=== PATIENT | female | born 1965 | race African-American/Black ===

== ENCOUNTER 2016-08-18 05:36 | Inpatient (IN) | payer BC ==
[~2016-08-18] VITALS: Ht 165.1 cm; Wt 119.4 kg
[~2016-08-18 05:36] MED LIST: ALBU0.63 NEB; ALBU8.5H6 INH; AMLO5TAB2 PO; CETI10CA PO; DOCU-27 PO; ENOX120D SQ; FLUT9.9S NS; HYDR-2666 PO; HYDR12.53 PO; LISI-338 PO; LISI40TA PO; NAPR500T PO; NAPR500T3 PO; OXYC-323 PO; WARF5TAB PO
[2016-08-18] MEDS ORDERED: ASPIRIN 325 MG TABLET PO ONE (06:00)
[2016-08-18 06:01] LABS: BASO % 1 % (0-3); EOS % 4 % (0-3); HEMOGLOBIN 12.4 g/dL (12.0-15.5); LYMPH # 1.2 x10^3/uL (1.0-4.8); LYMPH % 36 % (24-48); MEAN CORPUSCULAR HEMOGLOBIN 28 pg (25-35); MEAN CORPUSCULAR HGB CONC 33 g/dL (31-37); MEAN CORPUSCULAR VOLUME 85 fL (79-100); MONO % 8 % (0-9); NEUT % 51 % (31-73); PLATELET COUNT 247 x10^3/uL (140-400); RED BLOOD COUNT 4.35 x10^6/uL (3.50-5.40); RED CELL DISTRIBUTION WIDTH 15.1 % (11.5-14.5); WHITE BLOOD COUNT 3.3 x10^3/uL (4.0-11.0)
[2016-08-18 06:13] LABS: CALCIUM 9.6 mg/dL (8.5-10.1); CREATININE 0.8 mg/dL (0.6-1.0); GFR 90.8; INR 3.1 (0.8-1.1); POTASSIUM 4.2 mmol/L (3.5-5.1); PROTHROMBIN TIME PATIENT 30.6 SEC (11.7-14.0)
[2016-08-18 06:19] LABS: ALBUMIN 3.7 g/dL (3.4-5.0); ALBUMIN/GLOBULIN RATIO 0.8 (1.0-1.7); TOTAL BILIRUBIN 0.3 mg/dL (0.2-1.0); TOTAL PROTEIN 8.4 g/dL (6.4-8.2)
--- NOTE | 2016-08-18 06:30 | PHYS DOC ---
Past Medical History Past Medical History: Asthma, Hypertension Past Surgical History: , Other Additional Past Surgical Histo: Left arthroscope-2 torn meniscus L)knee Alcohol Use: None Drug Use: None Adult General Chief Complaint Chief Complaint: CHEST PAIN HPI HPI Patient is a 51 year old female who presents with complaint of chest pain. Patient states that her pain started yesterday evening at approximately 2100. Patient states that she is having substernal heaviness which she rates as 6 out of 10. Patient denies radiation of pain. Patient has had associated shortness of breath and nausea. Patient also notes that she had a low-grade fever of 99.8 F measured last night. Patient states that she took albuterol last night with no improvement in symptoms. Patient states that she has history of pulmonary embolism is concerned that she may have a recurrence as her symptoms are the same as they were one year ago when she was originally diagnosed. Patient is currently on Coumadin therapy and states that she has been compliant with the medication. Patient follows with Dr. Meza for primary care and Dr. Puckett of cardiology. Review of Systems Review of Systems Constitutional: Fever [] Eyes: Denies change in visual acuity, redness, or eye pain [] HENT: Denies nasal congestion or sore throat [] Respiratory: Shortness of breath [] Cardiovascular: Chest pain, denies edema [] GI: Nausea, denies abdominal pain, vomiting, bloody stools or diarrhea [] : Denies dysuria or hematuria [] Musculoskeletal: Denies back pain or joint pain [] Integument: Denies rash or skin lesions [] Neurologic: Denies headache, focal weakness or sensory changes [] Current Medications Current Medications Current Medications Medications (Trade) Dose Ordered Sig/Isai Start Time Stop Time Status Last Admin Dose Admin Aspirin (Aniya Aspirin) 325 mg 1X ONCE 08/18/16 06:00 08/18/16 06:01 DC 08/18/16 05:57 325 MG Fentanyl Citrate (Fentanyl 2ml Vial) 50 mcg PRN Q15MIN PRN 08/18/16 06:45 08/19/16 06:44 08/18/16 09:16 50 MCG Info (Do NOT chart on this entry -- for MONITORING) 1 each PRN DAILY PRN 08/18/16 06:45 08/20/16 06:44 Iohexol (Omnipaque 300 Mg/ml) 75 ml 1X ONCE 08/18/16 07:00 08/18/16 07:01 DC 08/18/16 07:31 75 ML Ondansetron HCl (Zofran) 4 mg 1X ONCE 08/18/16 07:00 08/18/16 07:01 DC 08/18/16 06:43 4 MG Allergies Allergies Allergies Coded Allergies Type Severity Reaction Last Updated Verified diphenhydramine Allergy Intermediate 09/18/15 Yes penicillin Allergy Intermediate Pt states, "My twin sister is allergic to it. "09/18/15 Yes promethazine Allergy Intermediate 08/18/16 Yes Physical Exam Physical Exam Constitutional: Alert, afebrile, no acute distress. [] HENT: Normocephalic, atraumatic, bilateral external ears normal, oropharynx moist, no oral exudates, nose normal. [] Eyes: PERRLA, EOMI, conjunctiva normal, no discharge. [] Neck: Normal range of motion, no tenderness, supple, no stridor. [] Cardiovascular:Heart rate regular rhythm, no murmur [] Lungs & Thorax: Bilateral breath sounds clear to auscultation [] Abdomen: Bowel sounds normal, soft, no tenderness, no masses, no pulsatile masses. [] Skin: Warm, dry, no erythema, no rash. [] Back: No tenderness, no CVA tenderness. [] Extremities: Right lower leg ecchymosis, nontender to palpation, no cyanosis, no clubbing, ROM intact, no edema. [] Neurologic: Alert and oriented X 3, normal motor function, normal sensory function, no focal deficits noted. [] Current Patient Data Vital Signs Vital Signs Date Time Temp Pulse Resp B/P Pulse Ox O2 Delivery O2 Flow Rate FiO2 08/18/16 07:53 58 149/85 96 Room Air 08/18/16 06:48 15 08/18/16 05:54 98.3 98.3 Lab Values Laboratory Tests Test 08/18/16 05:50 White Blood Count 3.3x10^3/uL (4.0-11.0) L Red Blood Count 4.35x10^6/uL (3.50-5.40) Hemoglobin 12.4g/dL (12.0-15.5) Hematocrit 37.0% (36.0-47.0) Mean Corpuscular Volume 85fL (79-100) Mean Corpuscular Hemoglobin 28pg (25-35) Mean Corpuscular Hemoglobin Concent 33g/dL (31-37) Red Cell Distribution Width 15.1% (11.5-14.5) H Platelet Count 247x10^3/uL (140-400) Neutrophils (%) (Auto) 51% (31-73) Lymphocytes (%) (Auto) 36% (24-48) Monocytes (%) (Auto) 8% (0-9) Eosinophils (%) (Auto) 4% (0-3) H Basophils (%) (Auto) 1% (0-3) Neutrophils # (Auto) 1.7x10^3uL (1.8-7.7) L Lymphocytes # (Auto) 1.2x10^3/uL (1.0-4.8) Monocytes # (Auto) 0.3x10^3/uL (0.0-1.1) Eosinophils # (Auto) 0.1x10^3/uL (0.0-0.7) Basophils # (Auto) 0.0x10^3/uL (0.0-0.2) Prothrombin Time 30.6SEC (11.7-14.0) H Prothrombin Time INR 3.1 (0.8-1.1) H PTT 43SEC (24-38) H Sodium Level 143mmol/L (136-145) Potassium Level 4.2mmol/L (3.5-5.1) Chloride Level 106mmol/L (98-107) Carbon Dioxide Level 29mmol/L (21-32) Anion Gap 8 (6-14) Blood Urea Nitrogen 18mg/dL (7-20) Creatinine 0.8mg/dL (0.6-1.0) Estimated GFR (Cockcroft-Gault) 90.8 BUN/Creatinine Ratio 23 (6-20) H Glucose Level 103mg/dL (70-99) H Calcium Level 9.6mg/dL (8.5-10.1) Total Bilirubin 0.3mg/dL (0.2-1.0) Aspartate Amino Transferase (AST) 24U/L (15-37) Alanine Aminotransferase (ALT) 21U/L (14-59) Alkaline Phosphatase 70U/L (46-116) Troponin I Quantitative < 0.017ng/mL (0.000-0.055) MA-Ipw-V-Type Natriuretic Peptide 58pg/mL (0-124) Total Protein 8.4g/dL (6.4-8.2) H Albumin 3.7g/dL (3.4-5.0) Albumin/Globulin Ratio 0.8 (1.0-1.7) L Laboratory Tests 08/18/16 05:50 Laboratory Tests 08/18/16 05:50 EKG EKG Interpreted by me: Heart rate 69, sinus rhythm, left axis deviation, no acute ST /T-wave abnormalities present [] Radiology/Procedures Radiology/Procedures [place] [id number] IMAGING REPORT Signed PATIENT: LAZARO RUELAS ACCOUNT: [id number] : 1965 LOCATION: ER AGE: 51 SEX: F EXAM STATUS: REG ER ORD. PHYSICIAN: NINFA SPRING MD REASON: CHEST PAIN PROCEDURE: CHEST AP ONLY Portable chest, 08/18/2016: History: Chest pain The heart size and pulmonary vascularity are normal. The lungs are clear. There is no evidence of pleural fluid. IMPRESSION: No acute cardiopulmonary abnormality is detected. DICTATED and SIGNED BY: PACHECO WADE MD DATE: 08/18/16 07 CC: GARDENIA SINGH MD; NINFA SPRING MD; KEANU MEZA MD ~ [address] [id number] IMAGING REPORT Signed PATIENT: LAZARO RUELAS ACCOUNT: [id number] : 1965 LOCATION: ER AGE: 51 SEX: F EXAM STATUS: REG ER ORD. PHYSICIAN: GARDENIA SINGH MD REASON: chest pain, shortness of breath, history of PE PROCEDURE: CT ANGIOGRAPHY CHEST CTA of the chest with contrast, 08/18/2016: History: Chest pain, shortness of breath Multidetector CT imaging was performed following an IV bolus injection of iodinated contrast material. Multiplanar reconstructions were produced including coronal MIP images. The central pulmonary arteries are well opacified and no filling defects are seen to suggest pulmonary emboli. The thoracic aorta is unremarkable. No mediastinal or hilar adenopathy is seen. There are several scattered linear opacities in the lungs compatible with atelectasis and/or scarring. There are small subpleural parenchymal opacities posteriorly in the right lower chest which were not evident on the previous study. These may represent scars in this patient with a history of previous pulmonary emboli. No significant parenchymal consolidation is seen. There is no evidence of pleural fluid. There are mild scattered spurs in the spine. IMPRESSION: 1. No CT evidence of central pulmonary emboli. 2. Mild linear atelectasis in both lungs. 3. Minimal subpleural peripheral parenchymal opacities in the right lower lobe may represent scars or old pulmonary infarcts. PQRS Compliance Statement: One or more of the following individualized dose reduction techniques were utilized for this examination: 1. Automated exposure control 2. Adjustment of the mA and/or kV according to patient size 3. Use of iterative reconstruction technique DICTATED and SIGNED BY: PACHECO WADE MD DATE: 08/18/16 0759 CC: GARDENIA SINGH MD; KEANU MEZA MD ~ [] Course & Med Decision Making Course & Med Decision Making Pertinent Labs and Imaging studies reviewed. (See chart for details) Patient was given aspirin, IV fentanyl and Zofran in the emergency department. Due to history of pulmonary embolism the patient had a CT angiogram that was negative for pulmonary embolus. Patient continues to have substernal chest pain which has improved slightly with treatment. The patient will need be admitted the hospital for rule out of myocardial infarction. I spoke with Dr. Meza who accepted care patient in hospital. A consult was placed to Dr. Puckett of cardiology to follow with patient in hospital. Dragon Disclaimer Dragon Disclaimer This electronic medical record was generated, in whole or in part, using a voice recognition dictation system. Departure Departure Impression: Primary Impression: Chest pain Additional Impressions: Hypertension History of pulmonary embolism Disposition: ADMITTED INPATIENT Admitting Physician: Keanu Meza Condition: STABLE Referrals: KEANU MEZA MD (PCP) Problem Qualifiers Primary Impression: Chest pain Chest pain type: unspecified Qualified Code: R07.9 - Chest pain, unspecified Additional Impressions: Hypertension Hypertension type: essential hypertension Qualified Code: I10 - Essential ( primary) hypertension GARDENIA SINGH MD Aug 18, 2016 06:30
[2016-08-18] MEDS: FENTANYL PF 100 MCG/2 ML VIAL. IV PRN ×3 (06:44→17:27)
[2016-08-18] MEDS ORDERED: CONTRAST GIVEN MC PRN (06:45)
--- NOTE | 2016-08-18 06:53 | EKG ---
[facility] [address] [place] [address] Test Date: 2016-08-18 Test Time: 05:45:26 Pat Name: LAZARO RUELAS Department: Room: Gender: F Supervisor [employer]: : 1965 Requested By: NINFA SPRING Order Number: [id number] Reading MD: Mendoza Cortés Measurements Intervals [place] Rate: 69 P: 8 MD: 186 QRS: -46 QRSD: 102 T: 39 QT: 392 QTc: 422 Interpretive Statements SINUS RHYTHM Electronically Signed On 08-18-2016 9:40:20 CDT by Mendoza Cortés
[2016-08-18] MEDS ORDERED: ONDANSETRON PF 4 MG/2 ML VIAL. IV ONE (07:00)
[2016-08-18] MEDS ORDERED: IOHEXOL 300 MG/ML 75 ML VIAL IV ONE (07:00)
--- NOTE | 2016-08-18 07:10 | RAD ---
Portable chest, 08/18/2016: History: Chest pain The heart size and pulmonary vascularity are normal. The lungs are clear. There is no evidence of pleural fluid. IMPRESSION: No acute cardiopulmonary abnormality is detected.
[2016-08-18] MEDS ORDERED: FENTANYL PF 100 MCG/2 ML VIAL. IV PRN (08:15)
[2016-08-18] MEDS ORDERED: ACETAMINOPHEN 325 MG TABLET. PO PRN (08:15)
[2016-08-18] MEDS ORDERED: ONDANSETRON PF 4 MG/2 ML VIAL. IV PRN (08:15)
--- NOTE | 2016-08-18 08:15 | RAD ---
CTA of the chest with contrast, 08/18/2016: History: Chest pain, shortness of breath Multidetector CT imaging was performed following an IV bolus injection of iodinated contrast material. Multiplanar reconstructions were produced including coronal MIP images. The central pulmonary arteries are well opacified and no filling defects are seen to suggest pulmonary emboli. The thoracic aorta is unremarkable. No mediastinal or hilar adenopathy is seen. There are several scattered linear opacities in the lungs compatible with atelectasis and/or scarring. There are small subpleural parenchymal opacities posteriorly in the right lower chest which were not evident on the previous study. These may represent scars in this patient with a history of previous pulmonary emboli. No significant parenchymal consolidation is seen. There is no evidence of pleural fluid. There are mild scattered spurs in the spine. IMPRESSION: 1. No CT evidence of central pulmonary emboli. 2. Mild linear atelectasis in both lungs. 3. Minimal subpleural peripheral parenchymal opacities in the right lower lobe may represent scars or old pulmonary infarcts. PQRS Compliance Statement: One or more of the following individualized dose reduction techniques were utilized for this examination: 1. Automated exposure control 2. Adjustment of the mA and/or kV according to patient size 3. Use of iterative reconstruction technique
[2016-08-18] MEDS ORDERED: IV NORMAL SALINE 1000ML BAG 1,000 ML IV SCH (09:00)
--- NOTE | 2016-08-18 09:47 | PDOC2 ---
BRUNO CHRISTIANSEN CHANGE ROOM ATTENDANT 08/18/16 0947: CARDIAC CONSULT DATE OF CONSULT Date of Consult DATE: 08/18/16 TIME: 09:41 REASON FOR CONSULT Reason for Consult: Chest Pain REFERRING PHYSICIAN Referring Physician: Dr. Steven SOURCE Source: Chart review, Patient HISTORY OF PRESENT ILLNESS HISTORY OF PRESENT ILLNESS This is a 51 yo female, with a h/o PE and hypertension, who presented with complaints of chest pain. Patient reports pain began yesterday evening after waking up from a nap. Located in her central chest. Describes as pressure. Associated with dizziness, slight nausea, SOA, and chills (temp 99.4). Denies any palpitations, diaphoresis, or syncope. Influenza A mid-july. Feels like she has recovered from this. Pain has essentially been constant since beginning late yesterday, although it is slightly less now. Worsened with deep breathing. Slightly better with fentanyl in ED. Reports pain very similar to what she experienced with PE last year. Is on warfarin therapy and has been compliant with medications. PAST MEDICAL HISTORY Cardiovascular: HTN, [place] (secondary to PE) Pulmonary: Asthma, Other (PE) GI: No pertinent hx Heme/Onc: Anemia NOS Hepatobiliary: No pertinent hx Psych: No pertinent hx Musculoskeletal: Osteoarthritis Rheumatologic: No pertinent hx Infectious disease: No pertinent hx ENT: No pertinent hx Renal/: No pertinent hx Endocrine: No pertinent hx, Other (obesity ) Dermatology: No pertinent hx PAST SURGICAL HISTORY Past Surgical History: , Hysterectomy (recent ), Other FAMILY HISTORY Family History: Hypertension, Stroke SOCIAL HISTORY Smoke: No ALCOHOL: none Drugs: None Lives: with Family CURRENT MEDICATIONS CURRENT MEDICATIONS Current Medications Medications (Trade) Dose Ordered Sig/Isai Route PRN Reason Start Time Stop Time Status Last Admin Dose Admin Aspirin (Aniya Aspirin) 325 mg 1X ONCE PO 08/18/16 06:00 08/18/16 06:01 DC 08/18/16 05:57 Ondansetron HCl (Zofran) 4 mg 1X ONCE IV 08/18/16 07:00 08/18/16 07:01 DC 08/18/16 06:43 Fentanyl Citrate (Fentanyl 2ml Vial) 50 mcg PRN Q15MIN PRN IV PAIN GREATER THAN 3/10 08/18/16 06:45 08/19/16 06:44 08/18/16 09:16 Iohexol 75 ml 75 ml 1X ONCE IV 08/18/16 07:00 08/18/16 07:01 DC 08/18/16 07:31 Sodium Chloride (Iv Sodium Chloride 0.9% 1000ml Bag) 1,000 ml @ 100 mls/hr Q10H IV 08/18/16 09:00 08/19/16 08:59 08/18/16 09:16 ALLERGIES ALLERGIES: Coded Allergies: diphenhydramine (Verified Allergy, Intermediate, 09/18/15) penicillin (Verified Allergy, Intermediate, Pt states, "My twin sister is allergic to it.", 09/18/15) promethazine (Verified Allergy, Intermediate, 08/18/16) ROS Review of System 14 point ROS conducted with pertinent positives noted above in HPI. PHYSICAL EXAM General: Alert, Oriented X3, Cooperative, No acute distress HEENT: Atraumatic, Mucous membr. moist/pink Lungs: Clear to auscultation, Normal air movement Heart: Regular rate, Normal S1, Normal S2, Other (central chest tenderness upon palpation ) Abdomen: Soft Extremities: No edema, Normal pulses Skin: No significant lesion Neuro: Normal speech, Sensation intact Psych/Mental Status: Mental status NL, Mood NL MUSCULOSKELETAL: Osteoarthritic changes both hands VITALS VITALS Vital Signs Date Time Temp Pulse Resp B/P Pulse Ox O2 Delivery O2 Flow Rate FiO2 08/18/16 09:16 18 08/18/16 09:03 60 161/85 100 08/18/16 07:53 Room Air 08/18/16 05:54 98.3 98.3 LABS Lab: Laboratory Tests Test 08/18/16 05:50 White Blood Count 3.3x10^3/uL (4.0-11.0) Red Blood Count 4.35x10^6/uL (3.50-5.40) Hemoglobin 12.4g/dL (12.0-15.5) Hematocrit 37.0% (36.0-47.0) Mean Corpuscular Volume 85fL (79-100) Mean Corpuscular Hemoglobin 28pg (25-35) Mean Corpuscular Hemoglobin Concent 33g/dL (31-37) Red Cell Distribution Width 15.1% (11.5-14.5) Platelet Count 247x10^3/uL (140-400) Neutrophils (%) (Auto) 51% (31-73) Lymphocytes (%) (Auto) 36% (24-48) Monocytes (%) (Auto) 8% (0-9) Eosinophils (%) (Auto) 4% (0-3) Basophils (%) (Auto) 1% (0-3) Neutrophils # (Auto) 1.7x10^3uL (1.8-7.7) Lymphocytes # (Auto) 1.2x10^3/uL (1.0-4.8) Monocytes # (Auto) 0.3x10^3/uL (0.0-1.1) Eosinophils # (Auto) 0.1x10^3/uL (0.0-0.7) Basophils # (Auto) 0.0x10^3/uL (0.0-0.2) Prothrombin Time 30.6SEC (11.7-14.0) Prothromb Time International Ratio 3.1 (0.8-1.1) Activated Partial Thromboplast Time 43SEC (24-38) Sodium Level 143mmol/L (136-145) Potassium Level 4.2mmol/L (3.5-5.1) Chloride Level 106mmol/L (98-107) Carbon Dioxide Level 29mmol/L (21-32) Anion Gap 8 (6-14) Blood Urea Nitrogen 18mg/dL (7-20) Creatinine 0.8mg/dL (0.6-1.0) Estimated GFR (Cockcroft-Gault) 90.8 BUN/Creatinine Ratio 23 (6-20) Glucose Level 103mg/dL (70-99) Calcium Level 9.6mg/dL (8.5-10.1) Total Bilirubin 0.3mg/dL (0.2-1.0) Aspartate Amino Transf (AST/SGOT) 24U/L (15-37) Alanine Aminotransferase (ALT/SGPT) 21U/L (14-59) Alkaline Phosphatase 70U/L (46-116) Troponin I Quantitative < 0.017ng/mL (0.000-0.055) FR-Fpp-T-Type Natriuretic Peptide 58pg/mL (0-124) Total Protein 8.4g/dL (6.4-8.2) Albumin 3.7g/dL (3.4-5.0) Albumin/Globulin Ratio 0.8 (1.0-1.7) ECHOCARDIOGRAM ECHOCARDIOGRAM <Conclusion> The left ventricular systolic function is normal. The ejection fraction is estimated at 55-60%. There is normal LV segmental wall motion. Trace to mild mitral regurgitation. Mild tricuspid regurgitation. There is no evidence of significant pericardial effusion. DATE: 05/27/15 1622 HEART CATH HEART CATH Conclusion 1. No significant coronary artery disease 2. Normal left ventricle systolic function with ejection fraction estimated at 60% 3. No significant mitral regurgitation or aortic stenosis Recommendations Patient's non-STEMI is most probably from the right ventricular strain secondary to pulmonary embolism. Recommended medical management. DATE: 05/27/15 0855 ASSESSMENT/PLAN ASSESSMENT/PLAN 1. Chest Pain, atypical initial trop negative- continue with series Cath 06/01 without any significant CAD pain possible pleuritic in nature as it is affected by deep breathing or MSK in origin as it is worsened with applying pressure to central chest. will check echo 2. H/o PE on warfarin therapy INR 3.1 CTA neg for PE 3. Hypertension resume home antiHTN therapy 4. Hyperlipidemia LDL 145 recommend statin therapy Problems: NEELAM PATEL MD 08/18/16 1430: CARDIAC CONSULT ALLERGIES ALLERGIES: Coded Allergies: diphenhydramine (Verified Allergy, Intermediate, 09/18/15) penicillin (Verified Allergy, Intermediate, Pt states, "My twin sister is allergic to it.", 09/18/15) promethazine (Verified Allergy, Intermediate, 08/18/16) ASSESSMENT/PLAN ASSESSMENT/PLAN Patient seen and examined. Agree with IT PROGRAMMER's assessment and plan. Chest pain with atypical features, reproducible to palpation and most probably musculoskeletal. Myocardial infarction ruled out. Cardiac catheterization in 2016 did not show any significant coronary disease. Check 2-D echo to assess LV systolic function and rule out wall motion abnormalities. Agree with initiating statin therapy for hyperlipidemia. Thank you for your consultation. Problems: BRUNO CHRISTIANSEN APRN Aug 18, 2016 09:47 NEELAM PATEL MD Aug 18, 2016 14:30
--- NOTE | 2016-08-18 09:58 | ACF ---
Admission Forms Criteria CARDIOLOGY GRG Clinical Indications for Admission to Inpatient Care ( Place 'X' for any and all applicable criteria): Hospital admission is needed for appropriate care of the patient because of ANY ONE of the following (1): [ ] I. Hemodynamic instability as indicated by ALL of the following (1)(2)(3) (4)(5) [ ]a) Vital signs or other findings not as expected for chronic patient condition or baseline [ ]b) Instability indicated by ANY ONE of the following: [ ]i) Hypotension [ ]ii) Symptomatic Tachycardia unresponsive to treatment ( e.g., analgesia, fluids, sedation as indicated) [ ]iii) Inadequate perfusion indicated by ANY ONE of the following: [ ] 1) Lactic acidosis (> 2 mmol/L) [ ] 2) New abnormal capillary refill (> 3 seconds) [ ] 3) Reduced urine output [ ] 4) New altered mental status [ ]iv) Orthostatic vital sign changes unresponsive to treatment (e.g., fluids) [ ]v) IV inotropic or vasopressor medication required to maintain adequate blood pressure or perfusion [ ] II. Severe heart failure as indicated by ANY ONE of the following(17)(18) [ ]a) Respiratory distress [ ]b) Hypotension [ ]c) Anasarca (refractory to outpatient therapy) [ ]d) Cardiac arrhythmias of immediate concern [ ]e) Myocardial ischemia [ ] III. Cardiac arrhythmias or findings of immediate concern indicated by ANY ONE of the following (19)(20): [ ] a) Heart rhythms that are inherently dangerous or unstable indicated by ANY ONE of the following (21)(22)(23): [ ] i) Resuscitated ventricular fibrillation or cardiac arrest [ ] ii) Ventricular escape rhythm [ ] iii) Sustained ventricular tachycardia (30 seconds or more of ventricular rhythm at greater than 100 beats per minute) [ ] iv) Nonsustained ventricular tachycardia and ANY ONE of the following: [ ] 1) Suspected cardiac ischemia as cause or consequence of ventricular tachycardia [ ] 2) In setting of acute myocarditis [ ] b) Unstable cardiac conduction defects indicated by ANY ONE of the following(23)(24)(25) [ ] i) Type II second-degree atrioventricular block [ ]ii) Third-degree atrioventricular block [ ]iii) New-onset left bundle branch block with suspected myocardial ischemia [ ]c) Any heart rhythm and ANY ONE of the following (21)(22)(26)(27) (28) [ ] i) Continuous long-term ECG monitoring needed (e.g., initiation of drug requiring monitoring for more than 24 hours) [ ] ii) Patient has automatic implanted cardioverter defibrillator that is repeatedly firing, malfunctioning, or in need of immediate adjustment of settings beyond the scope of ambulatory or observation care [ ]d) Heart rhythms of concern due to ANY ONE of the following: [ ] i) Hypotension [ ] ii) Respiratory distress [ ] iii) Association with other significant symptoms (e.g., bradycardia with syncope or ongoing dizziness, supraventricular tachycardia with chest pain (14)(15)(17) [ ] IV. Monitoring for cardiac contusion beyond the scope of observation care needed [A](30)(31)(32) [ ] V. Surgical or device complication (e.g., valve replacement complication , pacemaker dysfunction) (35)(41)(44)(45)(46) [ ] . Inpatient palliative care needed. [B](49) Also use Inpatient Palliative Care Criteria [ ] VII. Nonbacterial thrombotic (marantic) endocarditis (36)(43)(47)(48) [X] VIII. Cardiology condition, symptom, or finding for which emergency and observation care has failed or are not considered appropriate. [ ] IX. Acute valvular disease requiring inpatient as indicated by ANY ONE of the following (41) [ ]a) Acute valvular regurgitation (42) [ ]b) Noninfectious valvulitis (43) [ ]c) Obstructive valve thrombosis [ ]d) Paravalvular leak [ ]e) Other significant valvular disorder remaining after emergency or observation level of care (as appropriate) [ ]X. Pericardial disease requiring inpatient treatment as indicated by ANY ONE of the following (33)(34)(35)(36)(37) [ ]a) Suspected tamponade (38)(39)(40) [ ]b) Hemopericardium [ ]c) Other significant pericardial disorder remaining after emergency or observation level of care (as appropriate) [ ] XI. Cardiac ischemia beyond scope of emergency and observation care. [ ] XII. Hypertension requiring inpatient treatment as indicated by ANY ONE of the following (6)(7)(8) [ ]a) SBP greater than 220 mm Hg or DBP greater than 120 mmHg despite treatment [ ]b) SBP greater than 140 mm Hg or DBP greater than 100 mm Hg with evidence of acute end organ damage as indicated by ANY ONE of the following [ ] i) Encephalopathy [ ] ii) Acute renal failure as indicated by new onset of ANY ONE of the following (9)(10)(11)(12)(13) [ ]1) 3-fold rise in serum creatinine from baseline [ ]2) Serum creatinine greater than 4 mg/dL ( 354 micromoles/L) with acute rise greater than 0.5 mg/dL (44.2 micromoles/L) [ ]3) Reduction of more than 75% in estimated glomerular filtration rate from baseline [ ]4) Estimated glomerular filtration rate less than 35 mL/min/1.73m2 (0.59 mL/sec/1.73m2) in child up to 18 years of age [ ]5) Cessation of urine output indicated by ALL of the following [ ]A. Adequate volume status [ ]B. Inadequate urine output as indicated by ANY ONE of the following [ ]a. Urine output less than 0.3 mL/kg/hr for 24 hours [ ]b. Anuria (urine output less than 0.1 mL/kg/hr) for 12 hours [ ] iii) Aortic dissection [ ] iv) Myocardial Ischemia [ ] v) Left ventricular heart failure [ ]vi) Retinal Hemorrhage [ ]vii) Other significant finding [ ]c) Hypertension in child requiring inpatient treatment as indicated by ALL of the following(14)(15)(16) [ ] i) Outpatient treatment not effective, not available, or not appropriate [ ]ii) SBP or DBP greater than 95th percentile for age [ ]iii) Evidence of acute end organ damage as indicated by ANY ONE of the following [ ]1) Altered mental status [ ]2) Acute renal failure as indicated by new onset of ANY ONE of the following(9)(10)(11)(12)(13) [ ]A. 3-fold rise in serum creatinine from baseline [ ]B. Serum creatinine greater than 4 mg/dL (354 micromoles/L) with acute rise greater than 0.5 mg/dL (44.2 micromoles/L) [ ]C. Reduction of more than 75% in estimated glomerular filtration rate from baseline [ ]D. Estimated glomerular filtration rate less than 35 mL/min/1.73m2 (0.59 mL/sec/1.73m2) in child up to 18 years of age [ ]E. Cessation of urine output indicated by ALL of the following [ ]a. Adequate volume status [ ]b. Inadequate urine output as indicated by ANY ONE of the following [ ]i) Urine output less than 0.3 mL/kg/hr for 24 hours [ ]ii) Anuria ( urine output less than 0.1 mL/kg/hr) for 12 hours [ ]3) Severe headache [ ]4) Visual disturbance [ ]5) Retinal hemorrhage [ ]6) Other significant finding [ ]XIII. Complications of transplanted heart indicated by ANY ONE of the following(61): [ ]a) Acute graft rejection requiring inpatient management (eg, intravenous immunosuppression)(62)(63) [ ]b) Acute graft heart failure indicated by ANY ONE of the following(64): [ ]i) Hemodynamic instability [ ]ii) Cardiac arrhythmias of immediate concern [ ]iii) Pulmonary edema that is very severe (eg, mechanical ventilation needed, imminent or likely, need for 100% oxygen to keep oxygen saturation above 90%) [ ]iv) Pulmonary edema that is persistent as indicated by ALL of the following: [ ]1) New need for oxygen therapy to keep oxygen saturation above 90% (or increased FiO2 need from baseline) [ ]2) Has not improved sufficiently with emergency department or observation care IV diuretics or other heart failure treatments[E] [ ]v) Altered mental status that is severe or persistent [ ]vi) Increased creatinine (new on laboratory test) with reduction of more than 50% in estimated glomerular filtration rate from baseline [ ]vii) Progressively (ongoing) rising creatinine (known from past laboratory test) with reduction of more than 25% in estimated glomerular filtration rate from baseline [ ]viii) Acute renal failure [ ]ix) Acute peripheral ischemia (eg, examination shows pulseless, cool, mottled, or cyanotic extremity) [ ]x) Pulmonary artery catheter monitoring needed [ ]xi) Other sign or symptom of heart failure requiring inpatient treatment (ie, too severe or not responsive to outpatient and observation care treatment) [ ]c) Infection requiring inpatient management (eg, Hemodynamic instability, need for intravenous antimicrobial treatment)(66)(67)(68)(69)(70) [ ]d) Cardiac allograft vasculopathy requiring inpatient management ( eg evidence of cardiac ischemia)(71) [ ]e) Other complication of transplanted heart (eg, stroke, severe pulmonary hypertension, severe valvular dysfunction) requiring inpatient management(72) The original [facility] content created by [facility] has been revised. The portions of the content which have been revised are identified through the use of italic text or in bold, and [facility] has neither reviewed nor approved the modified material. All other unmodified content is copyright [facility]. Please see references footnoted in the original [facility] edition 2016 Admission Criteria Met?: Yes CAIT AVILA Aug 18, 2016 09:58
[2016-08-18 11:31] VITALS: BP 133/81
[2016-08-18] MEDS ORDERED: LISINOPRIL 40 MG TABLET. PO SCH (12:00)
[2016-08-18] MEDS ORDERED: AMLODIPINE BESYLATE 5 MG TABLET. PO SCH (12:00)
[2016-08-18] MEDS ORDERED: HYDROCHLOROTHIAZIDE 12.5 MG CAPSULE. PO SCH (12:00)
[2016-08-18] MEDS ORDERED: PRED-220 PO (13:16)
--- NOTE | 2016-08-18 14:22 | HP ---
ADMIT DATE: 08/18/2016 ADMITTED DIAGNOSIS: Chest pain. DISMISSAL DIAGNOSIS: Costochondritis. HISTORY OF PRESENT ILLNESS AND HOSPITAL COURSE: This patient is a 51-year-old -[place] female with history of pulmonary embolus, came to Emergency Room with a complaint of severe crescendoing type chest pain, intermittent chest over the last 24-48 hours. She took a breathing treatment and did not improving, came to Emergency Room for evaluation. Evaluation was completely negative for pulmonary embolus, but due to evidence of chest pain, she was admitted to the hospital for cardiology evaluation despite negative troponins and normal EKG. The patient was evaluated and during cardiology evaluation, was discovered to have a chest wall pain rather than cardiac chest pain. The patient also had a negative cardiac catheterization within the last year. Cardiac echo was ordered to rule out pericarditis or effusion and is pending at the time of dictation, but the patient is stable and has no evidence of cardiac disease, so plans for discharge will be made with treatment pleurisy with prednisone and outpatient followup in the office in 1 week for continued care and evaluation. PAST MEDICAL HISTORY: Significant for 1. Hypertension. 2. Asthma. 3. Pulmonary embolus. 4. Obesity. PAST SURGICAL HISTORY: Significant for left knee surgery, wisdom teeth and vaginal hysterectomy and bilateral oophorectomy. FAMILY HISTORY: Mother is alive with breast cancer survivor. Her father is . SOCIAL HISTORY: The patient does not smoke. She does not use alcohol significantly. She is and lives with one of her children. She has just seen a local residential facility. ALLERGIES: THE PATIENT EXHIBITS ALLERGIES TO BENADRYL, FLAGYL, PENICILLIN AND SULFA exhibiting rash. MEDICATIONS ON ADMISSION: Lisinopril 40 mg daily, amlodipine 5 mg daily, hydrochlorothiazide 12.5 mg daily, Coumadin 10 mg daily, ____ b.i.d., albuterol HFA 2 puffs q. 4 hours p.r.n. as well as nebulizer treatments q. 6 p.r.n. REVIEW OF SYSTEMS: Negative for nausea, vomiting or diarrhea. She does have chest pain with significant shortness of breath or diaphoresis or nausea, vomiting or radiation. She denies any recent weight loss or weight gain. PHYSICAL EXAMINATION: GENERAL: She is mildly obese, -[place] female, in mild distress. She is alert and oriented x 3. HEENT: Benign. NECK: Supple, without JVD or bruit. CARDIAC: Regular rate and rhythm. LUNGS: Clear. CHEST: Chest wall was acutely tender in the midchest, worse with palpation and inspiration. ABDOMEN: Soft, nontender, without masses. EXTREMITIES: There are 2+ pulses without significant edema. NEUROLOGIC: Showed no unilateral findings. ASSESSMENT: 1. Pleurisy possible pericarditis versus costochondritis. 2. History of pulmonary embolus. 3. Hypertension. 4. Obesity. 5. Asthma. PLAN: To proceed with pulmonary toilet, symptomatic treatment and cardiac echo and discharge to home, if stable. CESIA BLANCAS MD DR: YASMANY/carlitos JOB#: [id number] / [id number]
[2016-08-18 15:00] VITALS: BP 137/76
[2016-08-18] MEDS ORDERED: WARFARIN 10 MG TABLET. PO SCH (16:00)
[2016-08-18] MEDS ORDERED: ALBUTEROL SULFATE 2.5 MG/3 ML NEBU. NEB SCH (16:00)
--- NOTE | 2016-08-18 16:46 | CARD ---
APPROVED REPORT EXAM: Two-dimensional and M-mode echocardiogram with Doppler and color Doppler. Other Information Quality : GoodHR: 70bpm Rhythm : NSR INDICATION Chest Pain RISK FACTORS Hypertension 2D DIMENSIONS RVDd2.1 (2.9-3.5cm)Left Atrium(2D)3.7 (1.6-4.0cm) IVSd1.1 (0.7-1.1cm)Aortic Root(2D)2.7 (2.0-3.7cm) LVDd4.8 (3.9-5.9cm)LVOT Diameter2.1 (1.8-2.4cm) PWd1.1 (0.7-1.1cm)LVDs3.4 (2.5-4.0cm) FS (%) 29.5 %SV61.5 ml LVEF(%)56.4 (>50%) Aortic Valve AoV Peak Danny.171.4cm/sAoV VTI30.9cm AO Peak GR.11.8mmHgLVOT Peak Danny.158.2cm/s AO Mean GR.6mmHgAVA (VMAX)3.34cm2 Mitral Valve MV E Cevjudof81.4cm/sMV E Peak Gr.4mmHg MV DECEL [id number] A Uidttvbn44.1cm/s MV E Mean Gr.2mmHgE/A Ratio0.9 MV A Vfwqwckn025jn Pulmonary Valve PV Peak Lpxveazy229.2cm/s Tricuspid Valve TR P. Opydsrce936ve/sTR Peak Gr.27mmHg Pulmonary Vein S1 Wjjgoexm20.6cm/sD2 Wbynpetu88.3cm/s PVa [id number] LEFT VENTRICLE The left ventricle is normal size. There is mild concentric left ventricular hypertrophy. The left ve ntricular systolic function is normal and the ejection fraction is within normal range. The Ejection Fraction is 60-65%. There is normal LV segmental wall motion. Transmitral Doppler flow pattern is Gra de I-abnormal relaxation pattern. RIGHT VENTRICLE The right ventricle is normal size. There is normal right ventricular wall thickness. The right ventr icular systolic function is normal. ATRIA The left atrium size is normal. The right atrium size is normal. The interatrial septum is intact wit h no evidence for an atrial septal defect or patent foramen ovale as noted on 2-D or Doppler imaging. There is an aneursymal atrial septum. AORTIC VALVE The aortic valve is mildly thickened. The aortic valve is trileaflet. Doppler and Color Flow reveale trace significant aortic regurgitation. There is no significant aortic valvular stenosis. MITRAL VALVE The mitral valve leaflets are thickened. There is no evidence of mitral valve prolapse. There is no m itral valve stenosis. Doppler and Color Flow revealed trace mitral regurgitation. TRICUSPID VALVE Doppler and Color Flow revealed trace tricuspid regurgitation. The pulmonary artery systolic pressure is estimated at 27 mmHg. There is no pulmonary hypertension. PULMONIC VALVE Doppler and Color Flow revealed no pulmonic valvular regurgitation. There is no pulmonic valvular nuzhat nosis. GREAT VESSELS The aortic root is normal in size. The ascending aorta is normal in size. The IVC is normal in size a nd collapses >50% with inspiration. PERICARDIAL EFFUSION There is no evidence of significant pericardial effusion. Critical Notification Critical Value: No <Conclusion> The left ventricular systolic function is normal and the ejection fraction is within normal range. Th e Ejection Fraction is 60-65%. There is normal LV segmental wall motion. The interatrial septum is intact with no evidence for an atrial septal defect or patent foramen ovale as noted on 2-D or Doppler imaging. There is an aneursymal atrial septum.
[2016-08-18 17:29] VITALS: BP 124/68
[2016-08-18] MEDS ORDERED: ATOR10TA PO (18:12)
[2016-08-18] MEDS ORDERED: NAPROXEN 500 MG TABLET PO SCH (21:00)
[2016-08-18] MEDS ORDERED: DOCUSATE SODIUM 100 MG CAPSULE. PO SCH (21:00)
[2016-08-18] MEDS ORDERED: ATORVASTATIN CALCIUM 10 MG TABLET. PO SCH (21:00)
[2016-08-19] MEDS ORDERED: CETIRIZINE HCL 10 MG TABLET. PO SCH (09:00)
[2016-08-19] MEDS ORDERED: FLUTICASONE 50MCG/NASAL SPRAY 16GM BOTTLE. NS SCH (09:00)
== END 2016-08-18 21:05 | disposition home or self-care (01) | DRG 315 ==
LOC: ER 05:36 → 5 NORTH 08:09
PROVIDERS: ADMIT Family Medicine; ATTEND Family Medicine
DX: I31.9 Disease of pericardium, unspecified (principal); Z68.41 Body mass index [BMI] 40.0-44.9, adult; M94.0 Chondrocostal junction syndrome [Tietze]; E66.9 Obesity, unspecified; M19.90 Unspecified osteoarthritis, unspecified site; E78.5 Hyperlipidemia, unspecified; I10 Essential (primary) hypertension; J45.909 Unspecified asthma, uncomplicated; Z79.01 Long term (current) use of anticoagulants; Z80.3 Family history of malignant neoplasm of breast; Z82.3 Family history of stroke; Z82.49 Family history of ischemic heart disease and other diseases of the circulatory system; Z86.711 Personal history of pulmonary embolism; Z88.0 Allergy status to penicillin; Z88.8 Allergy status to other drugs, medicaments and biological substances; Z90.710 Acquired absence of both cervix and uterus
CPT/HCPCS: 36415; 71010; 71275; 80053; 80061; 83880; 84484; 85027; 85610; 85730; 93005; 93306; 96361; 96374; 96375; 96376; J2405; J3010; J7030; Q9967; 99285-25

== ENCOUNTER → 2016-08-24 | Outpatient (CLI) | payer BC ==
[2016-08-18 17:29] VITALS: BP 124/68
[~2016-08-24] MED LIST changes: +ATOR10TA PO; +PRED-220 PO; +REGADENOSON 0.4 MG/5 ML DISP.SYRIN. IV ONE
--- NOTE | 2016-08-26 14:24 | RAD ---
APPROVED REPORT Test Type: Pharmacological Stress Nurse/Tech: Vesna Perry R.N. Test Indications: c/p Cardiac History: murmur, htn, coumadin Medications: See Electronic Medical Record Medical History: See Electronic Medical Record Resting ECG: SR Resting Heart Rate: 68 bpm Resting Blood Pressure: 164/70mmHg Pretest Chest Pain: No chest painAtypical angina Nurse/Tech Notes S1S2, murmur by history but unable to hear it at this time. lungs CTA, pt stated that she had some ch est tightness across left breast are that was scale 5/10. Consent: The procedure was explained to the patient in lay terms. Informed consent was witnessed. Ike self was entered into [employer]. History and Stress Test performed by RT Galina (R) (N) Pharm. Details Pharmacologic stress testing was performed using 0.4mg per 5ml of regadenoson given intravenously ove r 7-10 seconds. Stress Symptoms Dyspnea, H/A, queasy feeling. SOB and stomach issues had resolved by end of recovery period. h/a was decreased but still present. stated that chist tightness went from a baseline of 5/10 to 7/10 post l exiscan but went back down to 5/10 by the end of recovery period POST EXERCISE Reason for Termination: Infusion complete Max HR: 122 bpm Max Blood Pressure: 164/70mmHg Blood Pressure response to exercise: Normal blood pressure response during stress. Chest Pain: Yes. base line chest tightness noted above- pt stated that it did increase post lexiscan to scale 7/10 Arrhythmia: No. ST Change: No. INTERPRETATION Stress EKG Conclusion: No evidence of stress induced EKG changes. Imaging Protocol IMAGE PROTOCOL: Rest Tc-99m/stress Tc-99m 2 days Rest: Stress: Viability: Radiopharm.Tc99m FemhjtcopBh64y Sestamibi Wgha31tDi 34mCi Img Date 08/24/2016 08/25/2016 Inj-Img Lkys92yod. 60min. Rest Admin Site:IV - Right AntecubitalAdministrator:GALDINO Preciado Stress Admin Site: IV - Left WristAdministrator: RT Galina (R)(N) STRESS DATA End Diast. Vol.104.0mlAv. Heart Rate79.0bpm End Syst. Vol.21.0mlCO Index BSA0.0L/min Myocardial Jxxb078.0gEject. Sfjngkag99.0% Stress Rates Pk. Fill Rate3.25EDV/secLVtime Pk. Fill 147.43msec Pk. Empty Rate4.33ESV/secLVtime Pk. Zyrjy045.99msec /3 Pk. Fill1.32EDV/sec Stress Scores Regional WT0.00Summed WT0.00 Regional WM0.00Summed WM0.00 The rest and stress images show normal perfusion, normal contraction and thickening. LV Perf. Quant 17 Seg. SSS2.00 17 Seg. SRS0.00 17 Seg. SDS2.00 Stress Defect Extent (% LAD)0.00Rest Defect Extent (% LAD)0.00Rev. Defect Extent (% LAD)0.00 Stress Defect Extent (% LCX) 0.00Rest Defect Extent (% LCX)0.00Rev. Defect Extent (% LCX)0.00 Stress Defect Extent (% RCA)0.00Rest Defect Extent (% RCA)0.00Rev. Defect Extent (% RCA)0.00 Stress Defect Extent (% CHACHO)0.00Rest Defect Extent (% CHACHO)0.00Rev. Defect Extent (% CHACHO)0.00 Other Information Quality:Good Risk Assessment: Low Risk Conclusion 1. No evidence of stress induced EKG changes. 2. Normal perfusion at stress/rest. EF > 70% 3. Low risk study
== END | disposition home or self-care (01) ==
LOC: NM 07:01
PROVIDERS: ATTEND Internal Medicine Cardiovascular Disease
DX: F43.9 Reaction to severe stress, unspecified (principal); R06.00 Dyspnea, unspecified
CPT/HCPCS: 78452; 96374; 96375; A9500; 93017; J2785

== ENCOUNTER 2016-12-06 09:15 | Emergency (ER) | payer BC ==
[~2016-12-06] VITALS: Ht 165.1 cm; Wt 116.6 kg
[~2016-12-06 09:15] MED LIST changes: +DOCU-109 PO; -DOCU-27 PO; -HYDR-2666 PO; +HYDR-2758 PO; -REGADENOSON 0.4 MG/5 ML DISP.SYRIN. IV ONE; +WARF-78 PO; -WARF5TAB PO
--- NOTE | 2016-12-06 10:41 | PHYS DOC ---
Past Medical History Past Medical History: Asthma, Hypertension, Kidney Infection, Other Additional Past Medical Histor: PE Past Surgical History: , Other Additional Past Surgical Histo: Left arthroscope-2 torn meniscus L)knee Alcohol Use: None Drug Use: None Adult General Chief Complaint Chief Complaint: LOWER EXT PAIN HPI HPI Patient is a 51 year old female presents emergency department stating that she has had 3-4 days of pain in her left calf area. Patient states that she has increased pain when she tries to ambulate or stand. 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 She denies any shortness of air difficulty breathing. She denies any chest pain at this time. Patient states that she is on Coumadin in which she's been on for the last 3 months. Patient denies any numbness or tingling down to the lower extremity. Review of Systems Review of Systems Constitutional: Denies fever or chills [] Eyes: Denies change in visual acuity, redness, or eye pain [] HENT: Denies nasal congestion or sore throat [] Respiratory: Denies cough or shortness of breath [] Cardiovascular: No additional information not addressed in HPI [] GI: Denies abdominal pain, nausea, vomiting, bloody stools or diarrhea [] : Denies dysuria or hematuria [] Musculoskeletal: Denies back pain. Complaint of left lower leg pain and discomfort Integument: Denies rash or skin lesions [] Neurologic: Denies headache, focal weakness or sensory changes [] Endocrine: Denies polyuria or polydipsia [] Allergies Allergies Allergies Coded Allergies Type Severity Reaction Last Updated Verified diphenhydramine Allergy Intermediate 09/18/15 Yes penicillin Allergy Intermediate Pt states, "My twin sister is allergic to it. "09/18/15 Yes promethazine Allergy Intermediate 08/18/16 Yes Physical Exam Physical Exam Constitutional: Well developed, well nourished, no acute distress, non-toxic appearance. [] HENT: Normocephalic, atraumatic, bilateral external ears normal, oropharynx moist, no oral exudates, nose normal. [] Eyes: PERRLA, EOMI, conjunctiva normal, no discharge. [] Neck: Normal range of motion, no tenderness, supple, no stridor. [] Cardiovascular:Heart rate regular rhythm, no murmur [] Lungs & Thorax: Bilateral breath sounds clear to auscultation [] Skin: Warm, dry, no erythema, no rash. [] Back: No tenderness Extremities: Left calf tenderness, no redness, positive Homans sign noted. Peripheral pulses 2+ cap refill brisk less than 2 seconds. Patient is able to ambulate and stand with a good steady gait. Good sensation noted to the lower extremities. No cyanosis, no clubbing, ROM intact, no edema. [] Neurologic: Alert and oriented X 3, normal motor function, normal sensory function, no focal deficits noted. [] Psychologic: Affect normal, judgement normal, mood normal. [] Current Patient Data Vital Signs Vital Signs Date Time Temp Pulse Resp B/P (MAP) Pulse Ox O2 Delivery O2 Flow Rate FiO2 12/06/16 10:00 58 22 147/72 (97) 98 Room Air 12/06/16 09:25 98.7 98.7 EKG EKG [] Radiology/Procedures Radiology/Procedures [][facility] [address] [place] [address] IMAGING REPORT Signed PATIENT: LAZARO RUELAS ACCOUNT: [id number] : 1965 LOCATION: ER AGE: 51 SEX: F EXAM STATUS: REG ER ORD. PHYSICIAN: CHING ALDANA APRN REASON: pain and cramping left lower leg, HX DVT PROCEDURE: VENOUS LOWER EXTREMITY LEFT Indication left leg pain. Grayscale color Doppler and spectral analysis was performed. The examination was targeted to the veins of the left lower extremity. The common femoral, femoral and popliteal vessels demonstrate normal flow compressibility and augmentation. No thrombus is seen. The visualized calf veins appeared unremarkable. The right common femoral vein appeared normal. IMPRESSION: Negative left lower extremity venous analysis for DVT DICTATED and SIGNED BY: JANAK RIDDLE MD DATE: 12/06/16 1109 CC: CHING ALDANA APRN; NON,STAFF; CESIA BLANCAS MD ~ Course & Med Decision Making Course & Med Decision Making Pertinent Labs and Imaging studies reviewed. (See chart for details) Patient's ultrasound was negative for any blood clots. Patient will be encouraged to use Tylenol for pain and discomfort. She'll be recommended to continue to wear her NAM hose. Also recommended that she follow up with her primary care physician in the next 3-5 days. Recommended that she continue using her Coumadin as prescribed. Patient agrees with discharge instructions treatment regimens and follow-up recommendations. Signs and symptoms to return back to the emergency department has been provided. [] Dragon Disclaimer Dragon Disclaimer This electronic medical record was generated, in whole or in part, using a voice recognition dictation system. Departure Departure Impression: Primary Impression: Pain of left calf Disposition: HOME, SELF-CARE Condition: STABLE Referrals: CESIA BLANCAS MD (PCP) Patient Instructions: Leg Cramps Additional Instructions: Activity as tolerated. Continue to take her Coumadin as prescribed. Tylenol for pain and discomfort. Drink plenty of fluids such as water, propel, Gatorade, Powerade. Continue to wear your NAM hose in which she state you've doing your working. Follow-up to primary care physician in next 3-5 days. Return back to emergency prior signs symptoms of become worse. CHING ALDANA ORE MINER BLASTING Dec 06, 2016 10:41
[2016-12-06 11:00] VITALS: BP 137/66
--- NOTE | 2016-12-06 11:13 | RAD ---
Indication left leg pain. Grayscale color Doppler and spectral analysis was performed. The examination was targeted to the veins of the left lower extremity. The common femoral, femoral and popliteal vessels demonstrate normal flow compressibility and augmentation. No thrombus is seen. The visualized calf veins appeared unremarkable. The right common femoral vein appeared normal. IMPRESSION: Negative left lower extremity venous analysis for DVT
== END 2016-12-06 11:34 | disposition home or self-care (01) ==
LOC: ER 09:15
DX: M79.662 Pain in left lower leg (principal); J45.909 Unspecified asthma, uncomplicated; I10 Essential (primary) hypertension; Z79.01 Long term (current) use of anticoagulants; Z88.0 Allergy status to penicillin; Z86.718 Personal history of other venous thrombosis and embolism; Z88.8 Allergy status to other drugs, medicaments and biological substances
CPT/HCPCS: 93971; 99284-25

== ENCOUNTER → 2016-12-16 | Outpatient (CLI) | payer BC ==
[2016-12-06 11:00] VITALS: BP 137/66
--- NOTE | 2016-12-16 16:27 | RAD ---
DATE: 12/16/2016 EXAM: DIGITAL SCREEN BILAT W/CAD HISTORY: Baseline screening mammogram COMPARISON: None. This study was interpreted with the benefit of Computerized Aided Detection (CAD). The breast parenchyma shows scattered fibroglandular densities. Breast parenchyma level B. FINDINGS: Bilateral digital 2-D CC and MLO views. There is a focal asymmetry in the upper outer right breast 6.5 cm posterior to the nipple with no associated calcifications or architectural distortion. No suspicious mass, calcification or architectural distortion in the left breast. There are a few bilateral upper outer intramammary lymph nodes. IMPRESSION: Right breast upper outer focal asymmetry. Recommend additional imaging with possibility for same-day ultrasound. BI-RADS CATEGORY: 0 INCOMPLETE: NEEDS ADDITIONAL IMAGING EVALUATION AND/OR PRIOR MAMMOGRAMS FOR COMPARISON. RECOMMENDED FOLLOW-UP: ADD ADDITIONAL IMAGING Mammography is a sensitive method for finding small breast cancers, but it does not detect them all and is not a substitute for careful clinical examination. A negative mammogram does not negate a clinically suspicious finding and should not result in delay in biopsying a clinically suspicious abnormality. "Our facility is accredited by the [employer] Mammography [employer]."
== END | disposition home or self-care (01) ==
LOC: MAMMO 14:11
PROVIDERS: ATTEND Family Medicine
DX: Z12.31 Encounter for screening mammogram for malignant neoplasm of breast (principal)
CPT/HCPCS: G0202; 77067

== ENCOUNTER → 2016-12-25 | Outpatient (CLI) | payer BC ==
[2016-12-06 11:00] VITALS: BP 137/66
--- NOTE | 2016-12-25 13:17 | RAD ---
DATE: 12/25/2016 EXAM: DIGITAL DIAGNOSTIC RT HISTORY: Asymmetric density seen in the right breast on recent screening mammogram. COMPARISON: 12/16/2016 This study was interpreted with the benefit of Computerized Aided Detection (CAD). The right breast parenchyma shows scattered fibroglandular densities. Breast parenchyma level B. FINDINGS: Spot compression digital MLO and CC and true lateral digital mammograms of the right breast were obtained. Comparison study is dated 12/16/2016. The asymmetric density within the upper-outer quadrant of the right breast compresses out on today's additional spot compression mammograms. No abnormality is seen on the true lateral mammogram. I would recharacterize the patient's mammograms as a BI-RADS Category 1, negative no mammographic evidence of malignancy with a recommendation for routine yearly screening mammography for follow-up. IMPRESSION: BI-RADS Category 1, negative. No mammographic evidence of malignancy. BI-RADS CATEGORY: 1 NEGATIVE RECOMMENDED FOLLOW-UP: 12M 12 MONTH FOLLOW-UP PQRS compliance statement: Patient information was entered into a reminder system with a target due date 12/16/2017 for the next mammogram. Mammography is a sensitive method for finding small breast cancers, but it does not detect them all and is not a substitute for careful clinical examination. A negative mammogram does not negate a clinically suspicious finding and should not result in delay in biopsying a clinically suspicious abnormality. "Our facility is accredited by the [employer] Mammography [employer]."
== END | disposition home or self-care (01) ==
LOC: MAMMO 12:53
PROVIDERS: ATTEND Family Medicine
DX: R92.8 Other abnormal and inconclusive findings on diagnostic imaging of breast (principal)
CPT/HCPCS: G0206; 77065

== ENCOUNTER 2017-04-29 00:55 | Emergency (ER) | payer BC ==
[~2017-04-29] VITALS: Ht 165.1 cm; Wt 115.2 kg
[~2017-04-29 00:55] MED LIST changes: +NAPR-683 PO; -NAPR500T PO; -NAPR500T3 PO; +NAPR500T4 PO
[2017-04-29 01:27] LABS: BILIRUBIN,URINE NEGATIVE (NEG); GLUCOSE,URINE NEGATIVE (NEG); NITRITE,URINE NEGATIVE (NEG); PROTEIN,URINE NEGATIVE (NEG-TRACE); UROBILINOGEN,URINE 0.2 mg/dL (0.2 mg/dL)
[2017-04-29 01:31] LABS: BACTERIA,URINE 0 /HPF (0-FEW); RBC,URINE 0 /HPF (0-2); SQUAMOUS EPITHELIAL CELL,UR FEW /LPF
[2017-04-29 01:49] LABS: BASO % 1 % (0-3); EOS % 2 % (0-3); HEMATOCRIT 34.7 % (36.0-47.0); HEMOGLOBIN 11.4 g/dL (12.0-15.5); LYMPH # 1.1 x10^3/uL (1.0-4.8); LYMPH % 25 % (24-48); MEAN CORPUSCULAR HEMOGLOBIN 29 pg (25-35); MEAN CORPUSCULAR HGB CONC 33 g/dL (31-37); MEAN CORPUSCULAR VOLUME 88 fL (79-100); MONO % 8 % (0-9); NEUT % 65 % (31-73); PLATELET COUNT 219 x10^3/uL (140-400); RED BLOOD COUNT 3.94 x10^6/uL (3.50-5.40); RED CELL DISTRIBUTION WIDTH 13.8 % (11.5-14.5); WHITE BLOOD COUNT 4.4 x10^3/uL (4.0-11.0)
[2017-04-29] MEDS ORDERED: IOHEXOL 300 MG/ML 100ML VIAL. IV ONE (02:00)
[2017-04-29 02:08] LABS: CALCIUM 8.6 mg/dL (8.5-10.1); CREATININE 0.8 mg/dL (0.6-1.0); GFR 90.8; POTASSIUM 4.1 mmol/L (3.5-5.1)
[2017-04-29 02:13] LABS: ALBUMIN 3.4 g/dL (3.4-5.0); ALBUMIN/GLOBULIN RATIO 0.9 (1.0-1.7); TOTAL BILIRUBIN 0.3 mg/dL (0.2-1.0); TOTAL PROTEIN 7.3 g/dL (6.4-8.2)
[2017-04-29] MEDS ORDERED: CONTRAST GIVEN MC PRN (02:15)
--- NOTE | 2017-04-29 02:17 | EKG ---
[facility] [address] [place] [address] Test Date: 2017-04-29 Test Time: 01:37:37 Pat Name: LAZARO RUELAS Department: Room: Gender: F Photolithographer: : 1965 Requested By: SHARI THAKKAR Order Number: [id number] Reading MD: Measurements Intervals [place] Rate: 54 P: 28 VT: 196 QRS: -17 QRSD: 96 T: 28 QT: 396 QTc: 377 Interpretive Statements SINUS RHYTHM LEFTWARD AXIS QRS(T) CONTOUR ABNORMALITY CONSIDER ANTEROSEPTAL MYOCARDIAL DAMAGE POSSIBLY ABNORMAL ECG RI6.01 No previous ECG available for comparison
[2017-04-29] MEDS ORDERED: IV NORMAL SALINE 1000ML BAG 1,000 ML IV SCH (02:30)
[2017-04-29] MEDS ORDERED: ONDANSETRON PF 4 MG/2 ML VIAL. IV PRN (02:30)
[2017-04-29] MEDS ORDERED: PANTOPRAZOLE SODIUM IV DRIP 80 MG in IV NORMAL SALINE 100ML 100 ML IV SCH (02:30)
[2017-04-29] MEDS ORDERED: fentaNYL PF VIAL 100 MCG/2 ML VIAL IV ONE (02:45)
--- NOTE | 2017-04-29 03:01 | PHYS DOC ---
Past Medical History Past Medical History: Asthma, High Cholesterol, Hypertension, Kidney Infection , Other Additional Past Medical Histor: PE Past Surgical History: , Hysterectomy, Other Additional Past Surgical Histo: Left arthroscope-2 torn meniscus L)knee Alcohol Use: None Drug Use: None Adult General Chief Complaint Chief Complaint: ABDOMINAL PAIN HPI HPI Patient is a 51 year old male presents with persistent right lower quadrant pain described as moderate in severity since yesterday. Pain is described as both sharp and cramping. It is associated with nausea and lab loss of appetite. Patient adenopathy in the past 8 hours. Denies constipation diarrhea, flank pain, urinary frequency urgency or hematuria. No fever chills or sweats. No other acute symptoms or complaints. Prior . No prior abdominal surgerys.[] Review of Systems Review of Systems Review symptoms as per history of present illness. All other review symptoms are negative. All other systems were reviewed and found to be within normal limits, except as documented in this note. Current Medications Current Medications Current Medications Medications (Trade) Dose Ordered Sig/Isai Start Time Stop Time Status Last Admin Dose Admin Fentanyl Citrate (Fentanyl 2ml Vial) 75 mcg 1X ONCE 04/29/17 02:45 04/29/17 02:47 DC 04/29/17 02:42 75 MCG Info (Do NOT chart on this entry -- for MONITORING) 1 each PRN DAILY PRN 04/29/17 02:15 04/29/17 03:58 DC Iohexol (Omnipaque 300 Mg/ml) 75 ml 1X ONCE 04/29/17 02:00 04/29/17 02:04 DC 04/29/17 02:55 75 ML Ondansetron HCl (Zofran) 4 mg PRN Q8HRS PRN 04/29/17 02:30 04/29/17 03:58 DC Pantoprazole Sodium 80 mg/ Sodium Chloride 100 ml @ 10 mls/hr Q10H 04/29/17 02:30 04/29/17 03:58 DC 04/29/17 02:42 10 MLS/HR Sodium Chloride 1,000 ml @ 75 mls/hr [id number] 04/29/17 02:30 04/29/17 03:58 DC Allergies Allergies Allergies Coded Allergies Type Severity Reaction Last Updated Verified diphenhydramine Allergy Intermediate 09/18/15 Yes penicillin Allergy Intermediate Pt states, "My twin sister is allergic to it. "09/18/15 Yes promethazine Allergy Intermediate 08/18/16 Yes Physical Exam Physical Exam Constitutional: Well developed, well nourished, no acute distress, non-toxic appearance. [] HENT: Normocephalic, atraumatic, bilateral external ears normal, oropharynx moist, no oral exudates, nose normal. [] Eyes: PERRLA, EOMI, conjunctiva normal, no discharge. [] Neck: Normal range of motion, no tenderness, supple, no stridor. [] Cardiovascular:Heart rate regular rhythm. [] Lungs & Thorax: Bilateral breath sounds clear to auscultation [] Abdomen: Bowel sounds normal, soft, lower quadrant pain, tenderness, positive McBurney sign, no rebound rigidity or guarding., no masses, no pulsatile masses. [] Skin: Warm, dry, no erythema, no rash. [] Back: No tenderness. [] Extremities: No tenderness, no cyanosis, no clubbing. [] Neurologic: Alert and oriented X 3, normal motor function, normal sensory function, no focal deficits noted. [] Psychologic: Affect normal, judgement normal, mood normal. [] Current Patient Data Vital Signs Vital Signs Date Time Temp Pulse Resp B/P (MAP) Pulse Ox O2 Delivery O2 Flow Rate FiO2 04/29/17 03:30 58 13 162/92 (115) 99 Room Air 04/29/17 01:21 96.6 96.6 Lab Values Laboratory Tests Test 04/29/17 01:02 04/29/17 01:43 Urine Collection Type Unknown Urine Color Yellow Urine Clarity Clear Urine pH 6.0 Urine Specific [place] 1.015 Urine Protein Negative mg/dL (NEG-TRACE) Urine Glucose (UA) Negative mg/dL (NEG) Urine Ketones (Stick) Negative mg/dL (NEG) Urine Blood Negative (NEG) Urine Nitrite Negative (NEG) Urine Bilirubin Negative (NEG) Urine Urobilinogen Dipstick 0.2 mg/dL (0.2 mg/dL) Urine Leukocyte Esterase Small (NEG) Urine RBC 0 /HPF (0-2) Urine WBC 1-4 /HPF (0-4) Urine Squamous Epithelial Cells Few /LPF Urine Bacteria 0 /HPF (0-FEW) Urine Mucus Slight /LPF White Blood Count 4.4 x10^3/uL (4.0-11.0) Red Blood Count 3.94 x10^6/uL (3.50-5.40) Hemoglobin 11.4 g/dL (12.0-15.5) L Hematocrit 34.7 % (36.0-47.0) L Mean Corpuscular Volume 88 fL (79-100) Mean Corpuscular Hemoglobin 29 pg (25-35) Mean Corpuscular Hemoglobin Concent 33 g/dL (31-37) Red Cell Distribution Width 13.8 % (11.5-14.5) Platelet Count 219 x10^3/uL (140-400) Neutrophils (%) (Auto) 65 % (31-73) Lymphocytes (%) (Auto) 25 % (24-48) Monocytes (%) (Auto) 8 % (0-9) Eosinophils (%) (Auto) 2 % (0-3) Basophils (%) (Auto) 1 % (0-3) Neutrophils # (Auto) 2.8 x10^3uL (1.8-7.7) Lymphocytes # (Auto) 1.1 x10^3/uL (1.0-4.8) Monocytes # (Auto) 0.3 x10^3/uL (0.0-1.1) Eosinophils # (Auto) 0.1 x10^3/uL (0.0-0.7) Basophils # (Auto) 0.0 x10^3/uL (0.0-0.2) Sodium Level 139 mmol/L (136-145) Potassium Level 4.1 mmol/L (3.5-5.1) Chloride Level 105 mmol/L (98-107) Carbon Dioxide Level 27 mmol/L (21-32) Anion Gap 7 (6-14) Blood Urea Nitrogen 28 mg/dL (7-20) H Creatinine 0.8 mg/dL (0.6-1.0) Estimated GFR (Cockcroft-Gault) 90.8 BUN/Creatinine Ratio 35 (6-20) H Glucose Level 115 mg/dL (70-99) H Calcium Level 8.6 mg/dL (8.5-10.1) Total Bilirubin 0.3 mg/dL (0.2-1.0) Aspartate Amino Transferase (AST) 24 U/L (15-37) Alanine Aminotransferase (ALT) 21 U/L (14-59) Alkaline Phosphatase 79 U/L (46-116) Troponin I Quantitative < 0.017 ng/mL (0.000-0.055) Total Protein 7.3 g/dL (6.4-8.2) Albumin 3.4 g/dL (3.4-5.0) Albumin/Globulin Ratio 0.9 (1.0-1.7) L Lipase 133 U/L (73-393) Laboratory Tests 04/29/17 01:43 Laboratory Tests 04/29/17 01:43 EKG EKG [] Radiology/Procedures Radiology/Procedures [EKG: Normal sinus rhythm, sinus bradycardia, rate 54, no acute ST-T wave changes, QTC 377.] CT abdomen: No acute abdominal process per radiology report Course & Med Decision Making Course & Med Decision Making Pertinent Labs and Imaging studies reviewed. (See chart for details) [Symptoms improved with treatment. No identifiable cause on imaging or lab work. Recommend supportive care with PCP follow-up and general surgical follow- up is currently scheduled. Return precautions reviewed. Patient verbalizes understanding and agreement discharge instructions prior to departure.] Dragon Disclaimer Dragon Disclaimer This electronic medical record was generated, in whole or in part, using a voice recognition dictation system. Departure Departure Impression: Primary Impression: Abdominal pain Disposition: 01 HOME, SELF-CARE Condition: GOOD Referrals: CESIA BLANCAS MD (PCP) SHARI THAKKAR DO Apr 29, 2017 03:01
--- NOTE | 2017-04-29 03:15 | RAD ---
CT scan of the abdomen and pelvis with contrast 04/29/2017 CLINICAL HISTORY: Right lower quadrant abdominal pain. TECHNIQUE: After the intravenous administration of 75 cc of Omnipaque 300, contiguous, 5 mm axial sections were obtained through abdomen and pelvis. One or more of the following individualized dose reduction techniques were utilized for this study: 1. Automated exposure control. 2. Adjustment of the mA and/or kV according to patient size. 3. Use of iterative reconstruction technique. FINDINGS: Images through the lung bases demonstrate mild cardiomegaly. Minimal dependent subsegmental atelectasis is seen bilaterally. The liver, spleen, pancreas, adrenal glands and kidneys are within normal limits. The abdominal aorta tapers normally. The gallbladder is slightly contracted. No free fluid or free air is seen within the abdomen. There is no evidence of bowel obstruction. Air and stool is seen throughout the colon. The appendix is well-visualized and is within normal limits. Images through the pelvis demonstrate the urinary bladder distended with urine. Calcifications are seen within the pelvis consistent with phleboliths. No adnexal mass is seen. No free fluid is noted. Minimal S-shaped curvature of the thoracolumbar spine is seen. Degenerative changes are seen within the lower thoracic and throughout the lumbar spine. IMPRESSION: No acute abnormality is seen. Electronically signed by: Bora Pulido MD (04/29/2017 3:12 AM) [facility]
[2017-04-29 03:30] VITALS: BP 162/92
== END 2017-04-29 03:58 | disposition home or self-care (01) ==
LOC: ER 00:55
DX: R10.31 Right lower quadrant pain (principal); R11.0 Nausea; R63.0 Anorexia; J45.909 Unspecified asthma, uncomplicated; E78.00 Pure hypercholesterolemia, unspecified; I10 Essential (primary) hypertension; Z88.0 Allergy status to penicillin; Z90.710 Acquired absence of both cervix and uterus; Z86.711 Personal history of pulmonary embolism; Z68.41 Body mass index [BMI] 40.0-44.9, adult; Z88.8 Allergy status to other drugs, medicaments and biological substances
CPT/HCPCS: 36415; 74177; 80053; 81001; 83690; 84484; 85025; 87086; 93005; 96365; 96375; 99285; C9113; J3010; Q9967

== ENCOUNTER 2017-06-22 09:44 | Inpatient (IN) | payer BC ==
[2017-06-22 11:30] LABS: ADD MAN DIFF? NO
[2017-06-22 11:33] LABS: BASO % 1 % (0-3); EOS # 0.1 x10^3/uL (0.0-0.7); EOS % 3 % (0-3); HEMATOCRIT 36.7 % (36.0-47.0); HEMOGLOBIN 12.3 g/dL (12.0-15.5); LYMPH # 1.1 x10^3/uL (1.0-4.8); LYMPH % 31 % (24-48); MEAN CORPUSCULAR HEMOGLOBIN 29 pg (25-35); MEAN CORPUSCULAR HGB CONC 33 g/dL (31-37); MEAN CORPUSCULAR VOLUME 88 fL (79-100); MONO # 0.3 x10^3/uL (0.0-1.1); MONO % 8 % (0-9); NEUT % 57 % (31-73); PLATELET COUNT 222 x10^3/uL (140-400); RED BLOOD COUNT 4.18 x10^6/uL (3.50-5.40); RED CELL DISTRIBUTION WIDTH 13.5 % (11.5-14.5); WHITE BLOOD COUNT 3.5 x10^3/uL (4.0-11.0)
[2017-06-22 11:42] LABS: ANION GAP 9 (6-14); BLOOD UREA NITROGEN 32 mg/dL (7-20); BUN/CREATININE RATIO 36 (6-20); CALCIUM 9.4 mg/dL (8.5-10.1); CARBON DIOXIDE 29 mmol/L (21-32); CHLORIDE 103 mmol/L (98-107); CREATININE 0.9 mg/dL (0.6-1.0); GLUCOSE 93 mg/dL (70-99); POTASSIUM 3.6 mmol/L (3.5-5.1); SODIUM 141 mmol/L (136-145)
[2017-06-22 11:48] LABS: ALBUMIN 3.9 g/dL (3.4-5.0); ALBUMIN/GLOBULIN RATIO 0.9 (1.0-1.7); ALK PHOS 75 U/L (46-116); ALT (SGPT) 22 U/L (14-59); AST (SGOT) 23 U/L (15-37); TOTAL BILIRUBIN 0.4 mg/dL (0.2-1.0); TOTAL PROTEIN 8.4 g/dL (6.4-8.2)
[2017-06-22 12:20] LABS: BILIRUBIN,URINE NEGATIVE (NEG); CLARITY,URINE CLOUDY; COLOR,URINE RED; GLUCOSE,URINE NEGATIVE (NEG); NITRITE,URINE NEGATIVE (NEG); PROTEIN,URINE 100 mg/dL (NEG-TRACE); UROBILINOGEN,URINE 0.2 mg/dL (0.2 mg/dL)
[2017-06-22 12:36] LABS: RBC,URINE TNTC /HPF (0-2); SQUAMOUS EPITHELIAL CELL,UR FEW /LPF
[2017-06-22 12:38] LABS: BACTERIA,URINE FEW /HPF (0-FEW)
[2017-06-22 13:09] LABS: INR 3.3 (0.8-1.1); PARTIAL THROMBOPLASTIN TIME 39 SEC (24-38); PROTHROMBIN TIME PATIENT 31.8 SEC (11.7-14.0)
[2017-06-22] MEDS: ONDANSETRON PF 4 MG/2 ML VIAL. IV (14:13)
[2017-06-22] MEDS: IV NORMAL SALINE 1000ML BAG 1,000 ML IV (14:13)
[2017-06-22] MEDS ORDERED: ONDANSETRON PF 4 MG/2 ML VIAL. IV (15:30)
[2017-06-22 16:21] LABS: ADD MAN DIFF? NO
[2017-06-22 16:23] LABS: BASO % 1 % (0-3); EOS # 0.1 x10^3/uL (0.0-0.7); EOS % 3 % (0-3); HEMATOCRIT 34.2 % (36.0-47.0); HEMOGLOBIN 11.6 g/dL (12.0-15.5); LYMPH # 1.2 x10^3/uL (1.0-4.8); LYMPH % 34 % (24-48); MEAN CORPUSCULAR HEMOGLOBIN 30 pg (25-35); MEAN CORPUSCULAR HGB CONC 34 g/dL (31-37); MEAN CORPUSCULAR VOLUME 87 fL (79-100); MONO # 0.4 x10^3/uL (0.0-1.1); MONO % 10 % (0-9); NEUT # 1.9 x10^3uL (1.8-7.7); NEUT % 53 % (31-73); PLATELET COUNT 209 x10^3/uL (140-400); RED BLOOD COUNT 3.92 x10^6/uL (3.50-5.40); RED CELL DISTRIBUTION WIDTH 13.6 % (11.5-14.5); WHITE BLOOD COUNT 3.7 x10^3/uL (4.0-11.0)
[2017-06-22] MEDS: oxyCODONE/APAP 5/325 1 TAB TABLET PO (18:40)
[2017-06-23] MEDS ORDERED: INFLUENZA VAX SCREEN BY RX. MC (01:15)
[2017-06-23] MEDS: ACETAMINOPHEN 500 MG TABLET PO (04:10)
[2017-06-23 04:29] LABS: ADD MAN DIFF? NO
[2017-06-23 04:36] LABS: BASO % 1 % (0-3); EOS # 0.1 x10^3/uL (0.0-0.7); EOS % 4 % (0-3); HEMATOCRIT 31.9 % (36.0-47.0); HEMOGLOBIN 10.7 g/dL (12.0-15.5); LYMPH # 1.1 x10^3/uL (1.0-4.8); LYMPH % 38 % (24-48); MEAN CORPUSCULAR HEMOGLOBIN 30 pg (25-35); MEAN CORPUSCULAR HGB CONC 34 g/dL (31-37); MEAN CORPUSCULAR VOLUME 89 fL (79-100); MONO # 0.3 x10^3/uL (0.0-1.1); MONO % 10 % (0-9); NEUT # 1.4 x10^3uL (1.8-7.7); NEUT % 48 % (31-73); PLATELET COUNT 197 x10^3/uL (140-400); RED BLOOD COUNT 3.58 x10^6/uL (3.50-5.40); RED CELL DISTRIBUTION WIDTH 14.2 % (11.5-14.5); WHITE BLOOD COUNT 2.9 x10^3/uL (4.0-11.0)
[2017-06-23 04:56] LABS: ALBUMIN 3.2 g/dL (3.4-5.0); ALBUMIN/GLOBULIN RATIO 0.9 (1.0-1.7); ALK PHOS 69 U/L (46-116); ALT (SGPT) 18 U/L (14-59); ANION GAP 9 (6-14); AST (SGOT) 18 U/L (15-37); BLOOD UREA NITROGEN 27 mg/dL (7-20); BUN/CREATININE RATIO 27 (6-20); CALCIUM 9.4 mg/dL (8.5-10.1); CARBON DIOXIDE 27 mmol/L (21-32); CHLORIDE 107 mmol/L (98-107); GFR 69.9; GLUCOSE 91 mg/dL (70-99); POTASSIUM 4.5 mmol/L (3.5-5.1); SODIUM 143 mmol/L (136-145); TOTAL BILIRUBIN 0.4 mg/dL (0.2-1.0); TOTAL PROTEIN 6.7 g/dL (6.4-8.2)
[2017-06-23] MEDS: IBUPROFEN 600 MG TABLET. PO (08:08)
[2017-06-23] MEDS: FLU VACC QS2017-18 (36MOS+)/PF 0.5 ML SYRINGE. VAX IM (08:09)
[2017-06-23] MEDS: ALBUTEROL SULFATE 2.5 MG/3 ML NEBU. NEB ×4 (08:34→20:00)
[2017-06-23 09:44] LABS: CHOLESTEROL 197 mg/dL (0-200); HDLC 70 mg/dL (40-60); LDLC 119 mg/dL (0-100); NON-HDL CHOLESTEROL 127 mg/dL (0-129); TRIGLYCERIDES 39 mg/dL (0-150); VLDLC 8 mg/dL (0-40)
[2017-06-23 09:47] LABS: CHOLESTEROL/HDL RATIO 2.8
[2017-06-23] MEDS: CETIRIZINE HCL 10 MG TABLET. PO (10:44)
[2017-06-23] MEDS: PANTOPRAZOLE 40 MG TABLET.DR. PO (10:44)
[2017-06-23] MEDS: HYDROcodone/APAP 5/325MG 1 TAB TABLET PO ×2 (10:45→21:56)
[2017-06-23 20:12] LABS: CHLAMYDIA PROBE Negative (Negative); GC PROBE Negative (Negative)
[2017-06-23] MEDS: ATORVASTATIN CALCIUM 10 MG TABLET. PO (21:56)
[2017-06-23] MEDS: IV NORMAL SALINE 500ML BAG 500 ML IV (22:00)
[2017-06-23 22:20] LABS: ADD MAN DIFF? NO
[2017-06-23 22:23] LABS: BASO % 1 % (0-3); EOS # 0.1 x10^3/uL (0.0-0.7); EOS % 3 % (0-3); HEMATOCRIT 28.6 % (36.0-47.0); HEMOGLOBIN 9.7 g/dL (12.0-15.5); LYMPH # 1.5 x10^3/uL (1.0-4.8); LYMPH % 36 % (24-48); MEAN CORPUSCULAR HEMOGLOBIN 30 pg (25-35); MEAN CORPUSCULAR HGB CONC 34 g/dL (31-37); MEAN CORPUSCULAR VOLUME 88 fL (79-100); MONO # 0.4 x10^3/uL (0.0-1.1); MONO % 9 % (0-9); NEUT # 2.1 x10^3uL (1.8-7.7); NEUT % 51 % (31-73); PLATELET COUNT 185 x10^3/uL (140-400); RED BLOOD COUNT 3.25 x10^6/uL (3.50-5.40); RED CELL DISTRIBUTION WIDTH 14.1 % (11.5-14.5); WHITE BLOOD COUNT 4.1 x10^3/uL (4.0-11.0)
[2017-06-23 22:33] LABS: INR 3.3 (0.8-1.1); PROTHROMBIN TIME PATIENT 31.7 SEC (11.7-14.0)
[2017-06-23] MEDS: IV NORMAL SALINE 1000ML BAG 1,000 ML IV (23:48)
[2017-06-24 02:28] LABS: TYPE AND SCREEN 1 1
[2017-06-24 04:36] LABS: ADD MAN DIFF? NO
[2017-06-24 04:44] LABS: BASO % 1 % (0-3); EOS # 0.1 x10^3/uL (0.0-0.7); EOS % 3 % (0-3); HEMATOCRIT 28.4 % (36.0-47.0); HEMOGLOBIN 9.6 g/dL (12.0-15.5); LYMPH # 1.3 x10^3/uL (1.0-4.8); LYMPH % 36 % (24-48); MEAN CORPUSCULAR HEMOGLOBIN 30 pg (25-35); MEAN CORPUSCULAR HGB CONC 34 g/dL (31-37); MEAN CORPUSCULAR VOLUME 89 fL (79-100); MONO # 0.3 x10^3/uL (0.0-1.1); MONO % 8 % (0-9); NEUT # 1.8 x10^3uL (1.8-7.7); NEUT % 52 % (31-73); PLATELET COUNT 182 x10^3/uL (140-400); RED CELL DISTRIBUTION WIDTH 14.1 % (11.5-14.5); WHITE BLOOD COUNT 3.5 x10^3/uL (4.0-11.0)
[2017-06-24 05:17] LABS: ALBUMIN 2.8 g/dL (3.4-5.0); ALBUMIN/GLOBULIN RATIO 0.7 (1.0-1.7); ALK PHOS 64 U/L (46-116); ALT (SGPT) 16 U/L (14-59); ANION GAP 7 (6-14); AST (SGOT) 14 U/L (15-37); BLOOD UREA NITROGEN 25 mg/dL (7-20); BUN/CREATININE RATIO 31 (6-20); CALCIUM 8.8 mg/dL (8.5-10.1); CARBON DIOXIDE 28 mmol/L (21-32); CHLORIDE 108 mmol/L (98-107); CREATININE 0.8 mg/dL (0.6-1.0); GFR 90.4; GLUCOSE 103 mg/dL (70-99); SODIUM 143 mmol/L (136-145); TOTAL BILIRUBIN 0.3 mg/dL (0.2-1.0); TOTAL PROTEIN 6.6 g/dL (6.4-8.2)
[2017-06-24] MEDS: PHYTONADIONE 10 MG/ML AMPUL. SQ (05:59)
[2017-06-24 06:07] LABS: INR 2.5 (0.8-1.1); PROTHROMBIN TIME PATIENT 25.6 SEC (11.7-14.0)
[2017-06-24] MEDS: HYDROcodone/APAP 5/325MG 1 TAB TABLET PO ×2 (06:35→18:08)
[2017-06-24] MEDS: ALBUTEROL SULFATE 2.5 MG/3 ML NEBU. NEB ×4 (07:52→19:47)
[2017-06-24] MEDS: IV NORMAL SALINE 1000ML BAG 1,000 ML IV (08:00)
[2017-06-24] MEDS: PANTOPRAZOLE 40 MG TABLET.DR. PO (08:05)
[2017-06-24] MEDS: CETIRIZINE HCL 10 MG TABLET. PO (09:00)
[2017-06-24] MEDS ORDERED: ONDANSETRON PF 4 MG/2 ML VIAL. (10:40)
[2017-06-24] MEDS ORDERED: DEXAMETHASONE SOD PHOS 20 MG/5 ML VIAL. (10:40)
[2017-06-24] MEDS ORDERED: fentaNYL PF VIAL 100 MCG/2 ML VIAL (10:40)
[2017-06-24] MEDS ORDERED: LIDOCAINE 2% PF Vial for OR 5 ML VIAL. ×2 (10:40→10:45)
[2017-06-24] MEDS ORDERED: PROPOFOL 20 ML IV (10:40)
[2017-06-24] MEDS ORDERED: MIDAZOLAM HCL/PF 2 MG/2 ML VIAL. (10:40)
[2017-06-24] MEDS ORDERED: LIDOCAINE 1% PF 5 ML VIAL. (10:45)
[2017-06-24] MEDS ORDERED: LIDOCAINE 1%/EPI 1:100,000 20 ML VIAL. (11:19)
[2017-06-24] MEDS: ESTROGENS, CONJ VAGINAL CREAM 30GM TUBE. (12:12)
[2017-06-24] MEDS ORDERED: SEVOFLURANE 31 TO 60 MINUTES. IH (12:26)
[2017-06-24] MEDS ORDERED: CALCIUM CARBONATE 500 MG TAB.CHEW PO (12:30)
[2017-06-24] MEDS ORDERED: DEXTROSE 50% 25 GM / 50ML DISP.SYRIN. IV (12:30)
[2017-06-24] MEDS ORDERED: ZOLPIDEM 5 MG TABLET. PO (12:30)
[2017-06-24] MEDS ORDERED: 0.9 % SODIUM CHLORIDE 10 ML DISP.SYRIN. IV (12:30)
[2017-06-24] MEDS ORDERED: SIMETHICONE 80 MG TAB.CHEW PO (12:30)
[2017-06-24] MEDS: GABAPENTIN 300 MG CAPSULE. PO ×2 (14:00→21:39)
[2017-06-24] MEDS: ONDANSETRON PF 4 MG/2 ML VIAL. IV (18:08)
[2017-06-24] MEDS: ATORVASTATIN CALCIUM 10 MG TABLET. PO (21:38)
[2017-06-25] MEDS: GABAPENTIN 300 MG CAPSULE. PO (05:57)
[2017-06-25] MEDS: oxyCODONE/APAP 5/325 1 TAB TABLET PO (05:58)
[2017-06-25 06:01] LABS: ADD MAN DIFF? NO
[2017-06-25 06:14] LABS: BASO % 0 % (0-3); EOS % 0 % (0-3); HEMATOCRIT 28.8 % (36.0-47.0); HEMOGLOBIN 9.7 g/dL (12.0-15.5); LYMPH # 0.6 x10^3/uL (1.0-4.8); LYMPH % 10 % (24-48); MEAN CORPUSCULAR HEMOGLOBIN 30 pg (25-35); MEAN CORPUSCULAR HGB CONC 34 g/dL (31-37); MEAN CORPUSCULAR VOLUME 89 fL (79-100); MONO # 0.4 x10^3/uL (0.0-1.1); MONO % 6 % (0-9); NEUT # 5.2 x10^3uL (1.8-7.7); NEUT % 83 % (31-73); PLATELET COUNT 192 x10^3/uL (140-400); RED BLOOD COUNT 3.25 x10^6/uL (3.50-5.40); RED CELL DISTRIBUTION WIDTH 14.3 % (11.5-14.5); WHITE BLOOD COUNT 6.3 x10^3/uL (4.0-11.0)
[2017-06-25] MEDS: PANTOPRAZOLE 40 MG TABLET.DR. PO (07:47)
[2017-06-25] MEDS: IBUPROFEN 600 MG TABLET. PO (07:47)
[2017-06-25] MEDS: CETIRIZINE HCL 10 MG TABLET. PO (07:47)
[2017-06-25] MEDS: ALBUTEROL SULFATE 2.5 MG/3 ML NEBU. NEB ×2 (08:48→12:00)
== END 2017-06-25 15:30 | disposition home or self-care (01) | DRG 760 ==
LOC: 3 NORTH 06-24 14:22 → ER 09:44 → 6 SOUTH 17:30
PROC: 0UQGXZZ Repair Vagina, External Approach (ICD-10-PCS; principal; 2017-06-24 11:15)
PROC: 30233L1 Transfusion of Nonautologous Fresh Plasma into Peripheral Vein, Percutaneous Approach (ICD-10-PCS; 2017-06-24 11:33)
PROC: 30233K1 Transfusion of Nonautologous Frozen Plasma into Peripheral Vein, Percutaneous Approach (ICD-10-PCS; 2017-06-24 11:33)
DX: S31.41XA Laceration without foreign body of vagina and vulva, initial encounter (principal); I26.99 Other pulmonary embolism without acute cor pulmonale; Z68.41 Body mass index [BMI] 40.0-44.9, adult; N93.9 Abnormal uterine and vaginal bleeding, unspecified; E66.01 Morbid (severe) obesity due to excess calories; D50.0 Iron deficiency anemia secondary to blood loss (chronic); D64.9 Anemia, unspecified; I10 Essential (primary) hypertension; M19.90 Unspecified osteoarthritis, unspecified site; E78.00 Pure hypercholesterolemia, unspecified; T45.515A Adverse effect of anticoagulants, initial encounter; J45.909 Unspecified asthma, uncomplicated; Z86.711 Personal history of pulmonary embolism; Z90.710 Acquired absence of both cervix and uterus; Z98.891 History of uterine scar from previous surgery; Z90.722 Acquired absence of ovaries, bilateral; Y92.89 Other specified places as the place of occurrence of the external cause; Z82.49 Family history of ischemic heart disease and other diseases of the circulatory system; Z82.3 Family history of stroke; Z88.1 Allergy status to other antibiotic agents; Z88.0 Allergy status to penicillin; Z88.2 Allergy status to sulfonamides; Z88.8 Allergy status to other drugs, medicaments and biological substances; Z79.01 Long term (current) use of anticoagulants
CPT/HCPCS: 36415; 76856; 80053; 80061; 81001; 85025; 85610; 85730; 86850; 86900; 86901; 86927; 87086; 87491; 87591; 90686; 94640; 94760; 96361; 96374; 99285; 99285-25; J1100; J2250; J2405; J2704; J3010; J3430; J3490; J7030; J7040; J7613; P9017; Q0111

== ENCOUNTER → 2017-12-27 | Outpatient (CLI) | payer BC ==
[2017-06-25 13:40] VITALS: BP 108/58
[~2017-12-27] MED LIST changes: +LISI-130 PO; -LISI40TA PO; +NAPR-514 PO; -NAPR500T4 PO; +OMEP40CA5 PO
--- NOTE | 2017-12-28 16:10 | RAD ---
History: Routine screening. Technique: Bilateral digital mammographic routine views were obtained with CAD - computer aided detection. Comparison: 12/25/2016, 12/16/2016. Findings: Breast Tissue Density B :The breast tissue is composed of mixed fatty and fibroglandular tissue. There are no suspicious masses, microcalcifications or areas of architectural distortion. Impression: Negative mammogram. Recommendation: In the absence of new clinical symptoms or change in physical exam, annual screening mammography is recommended. BI-RADS Category 1: Negative. A mammogram does not have 100% sensitivity and therefore a negative imaging study should not delay further work up of a suspicious abnormality. The patient will receive a letter with the results in the mail. Patient information is entered into the reminder system with a target due date for the next screening mammogram. The patient will receive a reminder. "Our facility is accredited by the [employer] Mammography Program."
== END | disposition home or self-care (01) ==
LOC: MAMMO 08:47
PROVIDERS: ATTEND Family Medicine
DX: Z12.31 Encounter for screening mammogram for malignant neoplasm of breast (principal); I10 Essential (primary) hypertension; E78.5 Hyperlipidemia, unspecified; E78.00 Pure hypercholesterolemia, unspecified; Z86.2 Personal history of diseases of the blood and blood-forming organs and certain disorders involving the immune mechanism; Z86.711 Personal history of pulmonary embolism; Z86.718 Personal history of other venous thrombosis and embolism; Z90.722 Acquired absence of ovaries, bilateral; Z90.710 Acquired absence of both cervix and uterus; Z68.42 Body mass index [BMI] 45.0-49.9, adult; Z82.3 Family history of stroke; Z80.3 Family history of malignant neoplasm of breast
CPT/HCPCS: 77067

== ENCOUNTER 2018-05-13 18:59 | Observation (INO) | payer BC, OTHER ==
[~2018-05-13] VITALS: Ht 165.1 cm; Wt 120.2 kg
[~2018-05-13 18:59] MED LIST changes: -AMLO5TAB2 PO; +AMLO5TAB7 PO; -HYDR-2758 PO; +HYDR-2761 PO; -HYDR12.53 PO; +HYDR12.575 PO; -OXYC-323 PO; +OXYC1TAB15 PO
[2018-05-13] MEDS ORDERED: ASPIRIN CHEWABLE 81 MG TABLET. PO ONE (19:30)
[2018-05-13] MEDS: NITROGLYCERIN SUBLINGUAL 0.4 MG BOTTLE OF 25. SL PRN ×3 (19:39→21:51)
[2018-05-13] MEDS ORDERED: IOHEXOL 300 MG/ML 100ML VIAL. IV ONE (20:00)
[2018-05-13] MEDS ORDERED: CONTRAST GIVEN. MC PRN (20:00)
[2018-05-13 20:01] LABS: BASO % 1 % (0-3); EOS # 0.1 x10^3/uL (0.0-0.7); EOS % 3 % (0-3); HEMATOCRIT 33.6 % (36.0-47.0); HEMOGLOBIN 11.6 g/dL (12.0-15.5); LYMPH # 1.4 x10^3/uL (1.0-4.8); LYMPH % 35 % (24-48); MEAN CORPUSCULAR HEMOGLOBIN 30 pg (25-35); MEAN CORPUSCULAR HGB CONC 35 g/dL (31-37); MEAN CORPUSCULAR VOLUME 87 fL (79-100); MONO # 0.3 x10^3/uL (0.0-1.1); MONO % 8 % (0-9); NEUT # 2.1 x10^3uL (1.8-7.7); NEUT % 53 % (31-73); PLATELET COUNT 231 x10^3/uL (140-400); RED BLOOD COUNT 3.84 x10^6/uL (3.50-5.40); RED CELL DISTRIBUTION WIDTH 13.8 % (11.5-14.5); WHITE BLOOD COUNT 3.9 x10^3/uL (4.0-11.0)
[2018-05-13 20:14] LABS: PROTHROMBIN TIME PATIENT 13.9 SEC (11.7-14.0)
[2018-05-13 20:24] LABS: CALCIUM 9.5 mg/dL (8.5-10.1); CREATININE 1.1 mg/dL (0.6-1.0); GFR 62.4; POTASSIUM 3.7 mmol/L (3.5-5.1)
[2018-05-13 20:30] LABS: ALBUMIN 3.2 g/dL (3.4-5.0); ALBUMIN/GLOBULIN RATIO 0.7 (1.0-1.7); TOTAL BILIRUBIN 0.2 mg/dL (0.2-1.0); TOTAL PROTEIN 7.6 g/dL (6.4-8.2)
--- NOTE | 2018-05-13 20:40 | PHYS DOC ---
Past Medical History Past Medical History: Asthma, High Cholesterol, Hypertension, Kidney Infection , Other Additional Past Medical Histor: PE Past Surgical History: , Hysterectomy, Other Additional Past Surgical Histo: Left arthroscope-2 torn meniscus L)knee, CARDAIC CATH Alcohol Use: None Drug Use: None Adult General Chief Complaint Chief Complaint: CHEST PAIN HPI HPI Patient is a 53 year old female with a prior history of hypertension PE last 2016 in the setting of a mass found on her uterus she is not on anticoagulation at this time in addition history of asthma and obesity positive family history of stroke in the past presenting with chest pain right side of the chest described as both sharp and pressure does hurt to take a deep breath and also is worse when she walks to she's had constant pain for about 5 hours now. Social with mild shortness of breath as well as profound fatigue when she tries to exert herself symptoms are moderate she feels it going into her back as well otherwise nonradiating. Review of Systems Review of Systems Constitutional: Denies fever or chills [] Eyes: Denies change in visual acuity, redness, or eye pain [] HENT: Denies nasal congestion or sore throat [] Respiratory: Cardiovascular: No additional information not addressed in HPI [] GI: Musculoskeletal: Denies back pain or joint pain [] Integument: Denies rash or skin lesions [] All other systems were reviewed and found to be within normal limits, except as documented in this note. Current Medications Current Medications Current Medications Medications (Trade) Dose Ordered Sig/Isai Start Time Stop Time Status Last Admin Dose Admin Aspirin (Children'S Aspirin) 324 mg 1X ONCE 05/13/18 19:30 05/13/18 19:31 DC 05/13/18 19:38 324 MG Info (CONTRAST GIVEN -- Rx MONITORING) 1 each PRN DAILY PRN 05/13/18 20:00 05/15/18 19:59 Iohexol (Omnipaque 300 Mg/ml) 100 ml 1X ONCE 05/13/18 20:00 05/13/18 20:01 DC Nitroglycerin (Nitrostat) 0.4 mg PRN Q5MIN PRN 05/13/18 19:30 05/13/18 21:51 0.4 MG Allergies Allergies Allergies Coded Allergies Type Severity Reaction Last Updated Verified Sulfa (Sulfonamide Antibiotics) Allergy Intermediate 06/24/17 Yes diphenhydramine Allergy Intermediate 06/24/17 Yes metronidazole Allergy Intermediate 06/24/17 Yes promethazine Allergy Intermediate 06/24/17 Yes penicillin Adverse Reaction Intermediate Pt states, "My twin sister is allergic to it." 06/24/17 Yes Physical Exam Physical Exam Constitutional: Well developed, well nourished, no acute distress, non-toxic appearance. [] HENT: Normocephalic, atraumatic, bilateral external ears normal, oropharynx moist, no oral exudates, nose normal. [] Eyes: PERRLA, EOMI, conjunctiva normal, no discharge. [] Neck: Normal range of motion, no tenderness, supple, no stridor. [] Cardiovascular:Heart rate regular rhythm, no murmur [] chest wall ttp noted reproducible right anterior chest. Lungs & Thorax: Bilateral breath sounds clear to auscultation [] Abdomen: Bowel sounds normal, soft, no tenderness, no masses, no pulsatile masses. [] Skin: Warm, dry, no erythema, no rash. [] Back: No tenderness, no CVA tenderness. [] Extremities: No tenderness, no cyanosis, no clubbing, ROM intact, one plus edema. symmetric b/l Neurologic: Alert and oriented X 3, normal motor function, normal sensory function, no focal deficits noted. [] Psychologic: Affect normal, judgement normal, mood normal. [] Current Patient Data Vital Signs Vital Signs Date Time Temp Pulse Resp B/P (MAP) Pulse Ox O2 Delivery O2 Flow Rate FiO2 05/13/18 21:51 77 156/69 05/13/18 19:00 98.0 18 100 Room Air 98.0 Lab Values Laboratory Tests Test 05/13/18 19:53 White Blood Count 3.9 x10^3/uL (4.0-11.0) L Red Blood Count 3.84 x10^6/uL (3.50-5.40) Hemoglobin 11.6 g/dL (12.0-15.5) L Hematocrit 33.6 % (36.0-47.0) L Mean Corpuscular Volume 87 fL (79-100) Mean Corpuscular Hemoglobin 30 pg (25-35) Mean Corpuscular Hemoglobin Concent 35 g/dL (31-37) Red Cell Distribution Width 13.8 % (11.5-14.5) Platelet Count 231 x10^3/uL (140-400) Neutrophils (%) (Auto) 53 % (31-73) Lymphocytes (%) (Auto) 35 % (24-48) Monocytes (%) (Auto) 8 % (0-9) Eosinophils (%) (Auto) 3 % (0-3) Basophils (%) (Auto) 1 % (0-3) Neutrophils # (Auto) 2.1 x10^3uL (1.8-7.7) Lymphocytes # (Auto) 1.4 x10^3/uL (1.0-4.8) Monocytes # (Auto) 0.3 x10^3/uL (0.0-1.1) Eosinophils # (Auto) 0.1 x10^3/uL (0.0-0.7) Basophils # (Auto) 0.0 x10^3/uL (0.0-0.2) Prothrombin Time 13.9 SEC (11.7-14.0) Prothrombin Time INR 1.1 (0.8-1.1) D-Dimer (Luci) 0.50 ug/mlFEU (0.00-0.50) Sodium Level 145 mmol/L (136-145) Potassium Level 3.7 mmol/L (3.5-5.1) Chloride Level 106 mmol/L (98-107) Carbon Dioxide Level 29 mmol/L (21-32) Anion Gap 10 (6-14) Blood Urea Nitrogen 22 mg/dL (7-20) H Creatinine 1.1 mg/dL (0.6-1.0) H Estimated GFR (Cockcroft-Gault) 62.4 BUN/Creatinine Ratio 20 (6-20) Glucose Level 89 mg/dL (70-99) Calcium Level 9.5 mg/dL (8.5-10.1) Total Bilirubin 0.2 mg/dL (0.2-1.0) Aspartate Amino Transferase (AST) 20 U/L (15-37) Alanine Aminotransferase (ALT) 23 U/L (14-59) Alkaline Phosphatase 89 U/L (46-116) Troponin I Quantitative < 0.017 ng/mL (0.000-0.055) ZY-Djn-U-Type Natriuretic Peptide 36 pg/mL (0-124) Total Protein 7.6 g/dL (6.4-8.2) Albumin 3.2 g/dL (3.4-5.0) L Albumin/Globulin Ratio 0.7 (1.0-1.7) L Laboratory Tests 05/13/18 19:53 Laboratory Tests 05/13/18 19:53 EKG EKG [] Interpretation Time: EKG shows a normal sinus rhythm rate of 73 there are no acute ischemic changes noted QTC is 413 no obvious ischemia was identified this was interpreted by me at the time of encounter. Similar to April 2017 Radiology/Procedures Radiology/Procedures [] Impressions: CXR NEGATIVE. Course & Med Decision Making Course & Med Decision Making Pertinent Labs and Imaging studies reviewed. (See chart for details) []chest pain hx of pe difficult iv stick ddimer pending, trop and ekg neg for ischemia. heart score h 1 e 0 a 1 r 2 t 0 = 4, needs admit for obs/risk stratification as indicated. Patient is feeling somewhat better after nitroglycerin. D-dimer 0.50. I spoke with Dr. Ezio Chamberlain about this particular finding. We both agreed a dose of Lovenox now followed by a VQ scan in the morning would be reasonable. She is technically within the normal range and the d-dimer. Patient is agreeable to this plan as well she can get a CT scan due to bad IV access 22-gauge only. Dragon Disclaimer Dragon Disclaimer This electronic medical record was generated, in whole or in part, using a voice recognition dictation system. Departure Departure Impression: Primary Impression: Chest pain Disposition: ADMITTED INPATIENT Admitting Physician: Tayler Chamberlain Condition: STABLE Referrals: CESIA BLANCAS MD (PCP) MK PEOPLES MD May 13, 2018 20:40
--- NOTE | 2018-05-13 21:48 | RAD ---
EXAM: Chest, single view. HISTORY: Chest pain. COMPARISON: None. FINDINGS: A frontal view of the chest is obtained. There is no infiltrate, pleural effusion or pneumothorax. The heart is normal in size. IMPRESSION: No acute pulmonary finding. Electronically signed by: Yasmine Pham MD (05/13/2018 9:43 PM) [facility]
[2018-05-13] MEDS ORDERED: NITROGLYCERIN OINT 1 GM PACKET. TP ONE (22:15)
[2018-05-13] MEDS ORDERED: IV NORMAL SALINE 1000ML BAG 1,000 ML IV SCH (22:15)
[2018-05-13 23:00] VITALS: BP 150/73
--- NOTE | 2018-05-13 23:00 | NUR ---
Pt was admitted to the unit with c/o chest pain. Pt is A/Ox4, on RA, up adlib, tolerating well, pt received nitrox3, lovenox and ASA in ER. Originally admitted as an observation pt, pt received nitro in ER, therefore was switched to inpatient. Pt states taking no home meds, has hx of PE, but stated Dr. Meza took her off coumadin awhile ago. Pt will be NPO, VQ scan ordered for a.m. H&P completed, daughter at bedside, pt is SR on telemetry, VSS, bed/low locked position, call light within reach, will monitor for status changes.
[2018-05-14 03:55] VITALS: BP 124/73
[2018-05-14] MEDS: NITROGLYCERIN SUBLINGUAL 0.4 MG BOTTLE OF 25. SL PRN (05:09)
[2018-05-14 07:05] VITALS: BP 134/76
[2018-05-14 08:07] LABS: CHOLESTEROL/HDL RATIO 2.8
[2018-05-14] MEDS ORDERED: AZITHROMYCIN 250 MG TABLET. PO ONE (08:45)
[2018-05-14] MEDS ORDERED: FUROSEMIDE 20 MG/2 ML VIAL. IVP ONE (08:45)
[2018-05-14] MEDS ORDERED: oxyCODONE/APAP 7.5/325 1 TAB TABLET PO PRN (08:45)
[2018-05-14] MEDS ORDERED: PSEUDOEPHEDRINE 30 MG TABLET. PO PRN (08:45)
--- NOTE | 2018-05-14 08:56 | PDOC ---
Provider Note Provider Note H&P dictated # [id number] Aria POE MD May 14, 2018 08:56
[2018-05-14] MEDS ORDERED: CETIRIZINE HCL 10 MG TABLET. PO SCH (09:00)
[2018-05-14] MEDS ORDERED: FLUTICASONE 50MCG/NASAL SPRAY 16GM BOTTLE. NS SCH (09:00)
[2018-05-14] MEDS ORDERED: OSELTAMIVIR 75 MG CAPSULE PO SCH (09:00)
--- NOTE | 2018-05-14 09:21 | EKG ---
[facility] [address] [place] [address] Test Date: 2018-05-13 Test Time: 19:24:53 Pat Name: LAZARO RUELAS Department: Room: Gender: F [employer] Manager: : 1965 Requested By: MK PEOPLES Order Number: [id number] Reading MD: Measurements Intervals [place] Rate: 73 P: 45 MT: 194 QRS: -19 QRSD: 98 T: 22 QT: 372 QTc: 413 Interpretive Statements SINUS RHYTHM LEFTWARD AXIS BORDERLINE ECG No previous ECG available for comparison
[2018-05-14 09:37] LABS: INFLUENZA A PATIENT NEGATIVE (NEGATIVE); INFLUENZA B PATIENT NEGATIVE (NEGATIVE)
--- NOTE | 2018-05-14 10:19 | HP ---
ADMIT DATE: 05/13/2018 ADMISSION DIAGNOSIS: Chest pain. HISTORY OF PRESENT ILLNESS: This is a 53-year-old obese -[place] female with a history of pulmonary embolism 2 years ago, who presented to the Emergency Room with chest pressure, tightness and heaviness. She still has heaviness this morning and feels like something sitting on her chest. It hurts to take a deep breath. She was in constant pain last evening, which prompted her to come to the Emergency Room. She had some shortness of breath, exertional fatigue and some radiation of her pain into her back area. PAST MEDICAL HISTORY: Significant for asthma, hyperlipidemia, hypertension and pulmonary embolism, but she is no longer on anticoagulation. PAST SURGICAL HISTORY: Surgeries include a , hysterectomy, arthroscopy of the left knee and a cardiac catheterization. She also has year-round allergies; sleep apnea, which is untreated and morbid obesity with likely some recent weight gain. FAMILY HISTORY: Positive for sleep apnea, lung cancer, breast disease, gallbladder disease and GI disease. SOCIAL HISTORY: No tobacco or alcohol. ALLERGIES: SULFA, , METRONIDAZOLE, PENICILLIN AND PROMETHAZINE. HOME MEDICATIONS: Cetirizine 10 mg daily, albuterol 2 puffs q. 4 hours p.r.n. and nebulized p.r.n., Lipitor 10 mg at bedtime, fluticasone 1 spray each nostril b.i.d. and omeprazole 40 mg daily. REVIEW OF SYSTEMS: HEENT: She has got a lot of sinus congestion, sinus pain and headache. No visual trouble. No hearing change. No change in taste or smell. CARDIAC: As above. PULMONARY: Denies wheezes, but does have chest tightness. ABDOMEN: Reflux has been controlled. No change in her bowels. No blood in her stools. GENITOURINARY: No dysuria or flank pain. MUSCULOSKELETAL: Generalized weakness. No falls. SKIN: No bruising. NEUROLOGIC: No history of seizure, tremor or neuropathy. PHYSICAL EXAMINATION: VITAL SIGNS: She is afebrile, heart rate has been in the 70s, blood pressure is fluctuated from 124/73 to 150/73 and room air oxygen saturations in the upper 90s. GENERAL: She is congested with some sinus pain and pressure and bitemporal headache pain. Temporal arteries are nontender. Conjunctivae are clear. Mucous membranes are moist. NECK: Supple. HEART: Regular rate and rhythm. No murmurs heard. LUNGS: Clear without wheezes. ABDOMEN: Obese, soft, nondistended and nontender. No masses. Bowel sounds are present. EXTREMITIES: Without clubbing or cyanosis. She does appear to have a little bit of edema in her lower legs. SKIN: Not showing any bruising or lesions. It is warm with good turgor. NEUROLOGIC: She is intact, without any focal weakness. No sign of synovitis or effusions. LABORATORY DATA: White count is low at 3.9, hemoglobin slightly low at 11.6 with hematocrit of 33.6 and platelets at 231,000. Differentials are unremarkable. Coags: INR is 1.1. D-dimer is 0.50. Troponin x 3 is negative. ProBNP is 36. Lipid panel is unremarkable, with cholesterol of 175, LDL of 102 and HDL is 63. Electrolytes are normal. BUN was slightly elevated at 22, creatinine slightly elevated at 1.1, EGFR, though, was 62. Albumin is 3.2. IMAGING STUDIES: Chest x-ray: No infiltrate, pleural effusion or pneumothorax. The heart is normal in size. EKG, nonspecific changes. ASSESSMENT: 1. Chest pain. No evidence at this point of acute coronary syndrome. 2. History of asthma. No evidence clinically of an acute exacerbation. 3. History of pulmonary embolism with reassuring D-dimer. V/Q scan is pending. 4. Likely sinusitis/upper respiratory infection causing her symptoms. PLAN: She is admitted. Cardiology to see her. We will treat her sinus congestion, start her on antibiotics for presumed sinusitis. Await her V/Q scan, cover for now with Lovenox therapeutic dose. We will give her Percocet as needed for headache pain along with neb treatments for her lungs. Aria POE MD DR: JASON/carlitos JOB#: [id number] / [id number]
--- NOTE | 2018-05-14 10:53 | RAD ---
VQ Scan: Clinical History: Hx of PE 2016 Left calf and chest pain 16.5mci 133XE Gas 5.5mci 99mTc MAA. Technique: 16.5 mCi 133 xenon gas was administered and spot views were obtained on a gamma camera for a Nuclear Medicine ventilation examination. 5.5 mCi of Tc 99m MAA was administered intravenously and spot views were obtained on the gamma camera for a Nuclear Medicine perfusion examination. Static images were reviewed as a V/Q scan in order to exclude pulmonary embolism. Correlation: Yesterday chest x-ray. Findings: There is mild diffuse heterogeneity of activity on the ventilation study. Perfusion images are homogeneous without perfusion defects. This is low probability for pulmonary embolism based on the modified PIOPED criteria. Impression: Low probability for pulmonary embolism. Electronically signed by: Rachid Mae III, MD (05/14/2018 10:49 AM) [id number]
[2018-05-14] MEDS ORDERED: ALBUTEROL SULFATE 8GM INHALER. INH SCH (12:00)
[2018-05-14] MEDS ORDERED: ALBUTEROL SULFATE 2.5 MG/3 ML NEBU. NEB SCH (12:00)
--- NOTE | 2018-05-14 12:15 | PDOC2 ---
CONSULT Date of Consult Date of Consult DATE: 05/14/18 TIME: 12:14 Reason for Consult Reason for Consult: Chest pain Referring Physician Referring Physician: Dr. Chamberlain Identification/Chief Complaint Chief Complaint Chest pain Source Source: Chart review, Patient History of Present Illness Reason for Visit: 53-year-old female presented with retrosternal chest tightness associated with mild shortness of breath that started yesterday afternoon when she was at work. The pain was at 10/10 severity when it started and is presently at 6/10 severity. She denied any exertional component. She also denied any orthopnea/ PND, palpitations or syncope. Past Medical History Cardiovascular: HTN, [place] Pulmonary: Asthma, Pulmonary embolus, Other GI: No pertinent hx Heme/Onc: Anemia NOS Hepatobiliary: No pertinent hx Psych: No pertinent hx Musculoskeletal: Osteoarthritis Rheumatologic: No pertinent hx Infectious disease: No pertinent hx Renal/: No pertinent hx Endocrine: No pertinent hx, Other Past Surgical History Past Surgical History: , Hysterectomy, Other Family History Family History: Hypertension, Stroke Social History ALCOHOL: none Drugs: None Lives: with Family Current Problem List Problem List Problems Medical Problems: (1) Chest pain Status: Acute Current Medications Current Medications Current Medications Aspirin (Children'S Aspirin) 324 mg 1X ONCE PO Last administered on at 19:38; Start 05/13/18 at 19:30; Stop 05/13/18 at 19:31; Status DC Nitroglycerin (Nitrostat) 0.4 mg PRN Q5MIN PRN SL CHEST PAIN Last administered on 05/14/18at 05:09; Start 05/13/18 at 19:30 Iohexol (Omnipaque 300 Mg/ml) 100 ml 1X ONCE IV ; Start 05/13/18 at 20:00; Stop 05/13/18 at 20:01; Status DC Info (CONTRAST GIVEN -- Rx MONITORING) 1 each PRN DAILY PRN MC SEE COMMENTS; Start 05/13/18 at 20:00; Stop 05/15/18 at 19:59 Enoxaparin Sodium (Lovenox 100mg Syringe) 100 mg 1X ONCE SQ Last administered on 05/13/18at 22:45; Start 05/13/18 at 22:15; Stop 05/13/18 at 22:16; Status DC Sodium Chloride 1,000 ml @ 75 mls/hr [id number] IV Last administered on at 05:26; Start 05/13/18 at 22:15; Stop 05/14/18 at 22:14 Nitroglycerin (Nitro-Bid Oint) 1 inch 1X ONCE TP Last administered on at 22:43; Start 05/13/18 at 22:15; Stop 05/13/18 at 22:16; Status DC Influenza Virus Vaccine (Afluria Trivalent [id number] Syringe) 0.5 ml ONCE ONCE VAX IM Last administered on 05/14/18at 11:00; Start 05/14/18 at 09:00; Stop 05/14/18 at 09:01; Status DC Albuterol Sulfate (Ventolin Hfa) 2 puff Q4HRS INH ; Start 05/14/18 at 12:00; Status UNV Atorvastatin Calcium (Lipitor) 10 mg QHS PO ; Start 05/14/18 at 21:00 Cetirizine HCl (ZyrTEC) 10 mg DAILY PO Last administered on 05/14/18at 09:36; Start 05/14/18 at 09:00 Fluticasone Propionate (Flonase) 2 spray DAILY NS Last administered on at 10:56; Start 05/14/18 at 09:00 Pantoprazole Sodium (Protonix) 40 mg DAILYAC PO ; Start 05/15/18 at 07:30 Enoxaparin Sodium (Lovenox Per Pharmacy Treatment Dosing) 1 each PRN DAILY PRN MC SEE COMMENTS; Start 05/14/18 at 08:30 Albuterol Sulfate (Ventolin Neb Soln) 2.5 mg RTQID NEB Last administered on at 11:17; Start 05/14/18 at 12:00 Oxycodone/ Acetaminophen (Percocet 7.5/ 325) 1 tab PRN Q4HRS PRN PO PAIN Last administered on 05/14/18at 09:36; Start 05/14/18 at 08:45 Furosemide (Lasix) 20 mg 1X ONCE IVP Last administered on 05/14/18at 09:46; Start 05/14/18 at 08:45; Stop 05/14/18 at 08:49; Status DC Pseudoephedrine HCl (Sudafed) 30 mg PRN Q6HRS PRN PO NASAL CONGESTION; Start 05/14/18 at 08:45 Azithromycin (Zithromax) 500 mg 1X ONCE PO Last administered on 05/14/18at 09: 35; Start 05/14/18 at 08:45; Stop 05/14/18 at 08:49; Status DC Enoxaparin Sodium (Lovenox 120mg Syringe) 120 mg Q12HR SQ Last administered on 05/14/18at 09:37; Start 05/14/18 at 09:30 Oseltamivir Phosphate (Tamiflu) 75 mg BID PO Last administered on 05/14/18at 09 :36; Start 05/14/18 at 09:00; Stop 05/19/18 at 08:59 Active Scripts Active Lipitor (Atorvastatin Calcium) 10 Mg Tablet 1 Tab PO QHS Reported Omeprazole 40 Mg Capsule.dr 40 Mg PO DAILY Albuterol Sulfate Neb Soln (Albuterol Sulfate) 0.63 Mg/3 Ml Vial.neb 0.63 Mg NEB Albuterol Sulfate Hfa Inhaler (Albuterol Sulfate) 8.5 Gm Hfa.aer.ad 2 Puff INH Q4HRS Zyrtec (Cetirizine Hcl) 10 Mg Capsule 10 Mg PO DAILY Flonase Allergy Relief (Fluticasone Propionate) 9.9 Ml Cuddy.susp 9.9 Ml NS BID Allergies Allergies: Coded Allergies: Sulfa (Sulfonamide Antibiotics) (Verified Allergy, Intermediate, 06/24/17) diphenhydramine (Verified Allergy, Intermediate, 06/24/17) metronidazole (Verified Allergy, Intermediate, 06/24/17) promethazine (Verified Allergy, Intermediate, 06/24/17) penicillin (Verified Adverse Reaction, Intermediate, Pt states, "My twin sister is allergic to it.", 06/24/17) ROS PSYCHOLOGICAL ROS: No: Hallucinations Eyes: No Loss of vision HEENT: No: Epistaxis Respiratory: YES: Shortness of breath Cardiovascular: yes Chest Pain Gastrointestinal: No Vomiting Genitourinary: No Hematuria Neurological: No Seizures Skin: No Rash Physical Exam General: Alert, Oriented X3 HEENT: Atraumatic Lungs: Clear to auscultation Heart: Regular rate Extremities: No edema Psych/Mental Status: Mood NL Vitals VITALS Vital Signs Date Time Temp Pulse Resp B/P (MAP) Pulse Ox O2 Delivery O2 Flow Rate FiO2 05/14/18 11:18 96 Room Air 05/14/18 09:36 18 05/14/18 07:05 97.8 70 134/76 (95) 97.8 Labs Labs Laboratory Tests Test 05/13/18 19:53 05/14/18 01:00 05/14/18 07:00 05/14/18 09:00 White Blood Count 3.9 x10^3/uL (4.0-11.0) Red Blood Count 3.84 x10^6/uL (3.50-5.40) Hemoglobin 11.6 g/dL (12.0-15.5) Hematocrit 33.6 % (36.0-47.0) Mean Corpuscular Volume 87 fL (79-100) Mean Corpuscular Hemoglobin 30 pg (25-35) Mean Corpuscular Hemoglobin Concent 35 g/dL (31-37) Red Cell Distribution Width 13.8 % (11.5-14.5) Platelet Count 231 x10^3/uL (140-400) Neutrophils (%) (Auto) 53 % (31-73) Lymphocytes (%) (Auto) 35 % (24-48) Monocytes (%) (Auto) 8 % (0-9) Eosinophils (%) (Auto) 3 % (0-3) Basophils (%) (Auto) 1 % (0-3) Neutrophils # (Auto) 2.1 x10^3uL (1.8-7.7) Lymphocytes # (Auto) 1.4 x10^3/uL (1.0-4.8) Monocytes # (Auto) 0.3 x10^3/uL (0.0-1.1) Eosinophils # (Auto) 0.1 x10^3/uL (0.0-0.7) Basophils # (Auto) 0.0 x10^3/uL (0.0-0.2) Prothrombin Time 13.9 SEC (11.7-14.0) Prothromb Time International Ratio 1.1 (0.8-1.1) D-Dimer (Luci) 0.50 ug/mlFEU (0.00-0.50) Sodium Level 145 mmol/L (136-145) Potassium Level 3.7 mmol/L (3.5-5.1) Chloride Level 106 mmol/L (98-107) Carbon Dioxide Level 29 mmol/L (21-32) Anion Gap 10 (6-14) Blood Urea Nitrogen 22 mg/dL (7-20) Creatinine 1.1 mg/dL (0.6-1.0) Estimated GFR (Cockcroft-Gault) 62.4 BUN/Creatinine Ratio 20 (6-20) Glucose Level 89 mg/dL (70-99) Calcium Level 9.5 mg/dL (8.5-10.1) Total Bilirubin 0.2 mg/dL (0.2-1.0) Aspartate Amino Transf (AST/SGOT) 20 U/L (15-37) Alanine Aminotransferase (ALT/SGPT) 23 U/L (14-59) Alkaline Phosphatase 89 U/L (46-116) Troponin I Quantitative < 0.017 ng/mL (0.000-0.055) < 0.017 ng/mL (0.000-0.055) < 0.017 ng/mL (0.000-0.055) QX-Unq-I-Type Natriuretic Peptide 36 pg/mL (0-124) Total Protein 7.6 g/dL (6.4-8.2) Albumin 3.2 g/dL (3.4-5.0) Albumin/Globulin Ratio 0.7 (1.0-1.7) Triglycerides Level 49 mg/dL (0-150) Cholesterol Level 175 mg/dL (0-200) LDL Cholesterol, Calculated 102 mg/dL (0-100) VLDL Cholesterol, Calculated 10 mg/dL (0-40) Non-HDL Cholesterol Calculated 112 mg/dL (0-129) HDL Cholesterol 63 mg/dL (40-60) Cholesterol/HDL Ratio 2.8 Influenza Type A Antigen Negative (NEGATIVE) Influenza Type B Antigen Negative (NEGATIVE) Laboratory Tests Test 05/13/18 19:53 05/14/18 01:00 05/14/18 07:00 05/14/18 09:00 White Blood Count 3.9 x10^3/uL (4.0-11.0) Red Blood Count 3.84 x10^6/uL (3.50-5.40) Hemoglobin 11.6 g/dL (12.0-15.5) Hematocrit 33.6 % (36.0-47.0) Mean Corpuscular Volume 87 fL (79-100) Mean Corpuscular Hemoglobin 30 pg (25-35) Mean Corpuscular Hemoglobin Concent 35 g/dL (31-37) Red Cell Distribution Width 13.8 % (11.5-14.5) Platelet Count 231 x10^3/uL (140-400) Neutrophils (%) (Auto) 53 % (31-73) Lymphocytes (%) (Auto) 35 % (24-48) Monocytes (%) (Auto) 8 % (0-9) Eosinophils (%) (Auto) 3 % (0-3) Basophils (%) (Auto) 1 % (0-3) Neutrophils # (Auto) 2.1 x10^3uL (1.8-7.7) Lymphocytes # (Auto) 1.4 x10^3/uL (1.0-4.8) Monocytes # (Auto) 0.3 x10^3/uL (0.0-1.1) Eosinophils # (Auto) 0.1 x10^3/uL (0.0-0.7) Basophils # (Auto) 0.0 x10^3/uL (0.0-0.2) Prothrombin Time 13.9 SEC (11.7-14.0) Prothromb Time International Ratio 1.1 (0.8-1.1) D-Dimer (Luci) 0.50 ug/mlFEU (0.00-0.50) Sodium Level 145 mmol/L (136-145) Potassium Level 3.7 mmol/L (3.5-5.1) Chloride Level 106 mmol/L (98-107) Carbon Dioxide Level 29 mmol/L (21-32) Anion Gap 10 (6-14) Blood Urea Nitrogen 22 mg/dL (7-20) Creatinine 1.1 mg/dL (0.6-1.0) Estimated GFR (Cockcroft-Gault) 62.4 BUN/Creatinine Ratio 20 (6-20) Glucose Level 89 mg/dL (70-99) Calcium Level 9.5 mg/dL (8.5-10.1) Total Bilirubin 0.2 mg/dL (0.2-1.0) Aspartate Amino Transf (AST/SGOT) 20 U/L (15-37) Alanine Aminotransferase (ALT/SGPT) 23 U/L (14-59) Alkaline Phosphatase 89 U/L (46-116) Troponin I Quantitative < 0.017 ng/mL (0.000-0.055) < 0.017 ng/mL (0.000-0.055) < 0.017 ng/mL (0.000-0.055) HK-Yeu-T-Type Natriuretic Peptide 36 pg/mL (0-124) Total Protein 7.6 g/dL (6.4-8.2) Albumin 3.2 g/dL (3.4-5.0) Albumin/Globulin Ratio 0.7 (1.0-1.7) Triglycerides Level 49 mg/dL (0-150) Cholesterol Level 175 mg/dL (0-200) LDL Cholesterol, Calculated 102 mg/dL (0-100) VLDL Cholesterol, Calculated 10 mg/dL (0-40) Non-HDL Cholesterol Calculated 112 mg/dL (0-129) HDL Cholesterol 63 mg/dL (40-60) Cholesterol/HDL Ratio 2.8 Influenza Type A Antigen Negative (NEGATIVE) Influenza Type B Antigen Negative (NEGATIVE) Assessment/Plan Assessment/Plan 1. Chest pain with atypical features, most probably musculoskeletal since this is reproducible to palpation. Myocardial infarction has been ruled out. 2-D echo in 2017 showed normal LV systolic function and cardiac catheterization in 2016 did not show any significant coronary disease. We will consider ischemic evaluation the form of stress test as an outpatient. 2. History of PE: VQ scan low probability. 3. Hyperlipidemia: Statins therapy Thank you for your consultation NEELAM PATEL MD May 14, 2018 12:15
--- NOTE | 2018-05-14 12:59 | NUR ---
DISCONTINUE TELE AND IV. PT DISCHARGED TO HOME VIA PRIVATE VEHICLE.
[2018-05-14] MEDS ORDERED: ATORVASTATIN CALCIUM 10 MG TABLET. PO SCH (21:00)
[2018-05-15] MEDS ORDERED: PANTOPRAZOLE 40 MG TABLET.DR. PO SCH (07:30)
--- NOTE | 2018-05-16 16:43 | PDOC3 ---
Discharge Summary [facility] Date of Admission: May 13, 2018 Discharge Date: May 14, 2018 Admitting Diagnosis chest pain Final Diagnosis Problems Medical Problems: (1) Chest pain Status: Acute CONSULTS Password Procedures none Brief Hospital Course Ms. Pablo is a 53 old female who presented with: Chest pain but no evidence of acute coronary syndrome per enzymes or EKG was found. She has a history of asthma but had no evidence clinically of an acute exacerbation. She has a history of pulmonary embolism with reassuring D-dimer and V/Q scan was negative. It is likely sinusitis/upper respiratory infection were causing her symptoms. She was admitted. Cardiology saw her. We treated her sinus congestion & started her on antibiotics for presumed sinusitis. While awaiting her V/Q scan, she was covered for PE with Lovenox therapeutic dose. We gave her Percocet as needed for headache pain along with neb treatments for her lungs. Patient History: FH: sleep apnea G8 SISTER Family history: Breast disease (situation) Family history: Gallbladder disease (situation) 32 MOTHER (gangrenous, had ben) Family history: Gastrointestinal disease (situation) Family history: neoplasm - trachea/bronchus/lung (situation) 33 FATHER (father passed with lung cancer) 32 MOTHER (breast cancer) Disposition home CONDITION AT DISCHARGE: Improved, Stable Diet cardiac Scheduled Albuterol Sulfate (Albuterol Sulfate Hfa Inhaler), 2 PUFF INH Q4HRS, (Reported) Atorvastatin Calcium (Lipitor), 1 TAB PO QHS Cetirizine Hcl (Zyrtec), 10 MG PO DAILY, (Reported) Fluticasone Propionate (Flonase Allergy Relief), 9.9 ML NS BID, (Reported) Omeprazole (Omeprazole), 40 MG PO DAILY, (Reported) Miscellaneous Medications Albuterol Sulfate (Albuterol Sulfate Neb Soln), 0.63 MG NEB, (Reported) Follow Up 1-2 weeks Aria POE MD May 16, 2018 16:42
== END 2018-05-14 13:01 | disposition home or self-care (01) ==
LOC: ER 18:59 → 2 NORTH 20:30
PROVIDERS: ADMIT Family Medicine; ATTEND Family Medicine
DX: R07.89 Other chest pain (principal); J45.909 Unspecified asthma, uncomplicated; I10 Essential (primary) hypertension; E78.5 Hyperlipidemia, unspecified; Z86.711 Personal history of pulmonary embolism; Z98.891 History of uterine scar from previous surgery; Z90.710 Acquired absence of both cervix and uterus; Z82.49 Family history of ischemic heart disease and other diseases of the circulatory system; Z82.3 Family history of stroke; Z80.3 Family history of malignant neoplasm of breast; Z80.1 Family history of malignant neoplasm of trachea, bronchus and lung
CPT/HCPCS: 36415; 71045; 78582; 80053; 80061; 83880; 84484; 85025; 85379; 85610; 87804; 90471; 90756; 93005; 94640; 96372; 96374; 99284; A9540; A9558; G0378; J1650; J1940; J7030; J7613; Q0144; G0379; Q2035

== ENCOUNTER → 2018-05-19 | Outpatient (CLI) | payer OTHER ==
[2018-05-14 07:05] VITALS: BP 134/76
== END | disposition home or self-care (01) ==
LOC: LAB 15:48
PROVIDERS: ATTEND Obstetrics & Gynecology
DX: Z15.01 Genetic susceptibility to malignant neoplasm of breast (principal); Z20.2 Contact with and (suspected) exposure to infections with a predominantly sexual mode of transmission
CPT/HCPCS: 36415; 86703

== ENCOUNTER → 2018-05-30 | Outpatient (CLI) | payer OTHER ==
[2018-05-14 07:05] VITALS: BP 134/76
[~2018-05-30] MED LIST changes: +AMLO5TAB10 PO; -AMLO5TAB7 PO; +REGADENOSON 0.4 MG/5 ML DISP.SYRIN. IV ONE
--- NOTE | 2018-05-30 12:17 | RAD ---
MR#: [id number] Date of Study: 05/30/2018 Ordering Physician: NEELAM PATEL, Referring Physician: LENIN AVALOS Tech: Marleny Preciado NMTCB, NAS (R) (N) APPROVED REPORT Test Type: Pharmacological Stress Nurse/Tech: Brenda Nash R.N. Test Indications: chest pain Cardiac History: asthma, PE, htn Medications: see ehr Medical History: see ehr Resting ECG: SR Resting Heart Rate: 66 bpm Resting Blood Pressure: 155/97mmHg Pretest Chest Pain: No chest pain Nurse/Tech Notes Lungs cta, heart tones regular Consent: The procedure was explained to the patient in lay terms. Informed consent was witnessed. Ike eout was entered into [facility]. History and Stress Test performed by ABEBE Moses, NAS (R) (N) Pharm. Details Pharmacologic stress testing was performed using 0.4mg per 5ml of regadenoson given intravenously ove r 7-10 seconds. Stress Symptoms No chest pain or symptoms. POST EXERCISE Reason for Termination: Infusion complete Target HR: No Max HR: 99 bpm Max Blood Pressure: 159/99mmHg Chest Pain: No. Arrhythmia: No. ST Change: No. INTERPRETATION Stress EKG Conclusion: Baseline EKG showed sinus rhythm. No ischemic changes at peak stress. No arr hythmias. Imaging Protocol IMAGE PROTOCOL: Stress Tc-99m/rest Tc-99m 2 days Rest: Stress: Viability: Radiopharm.Tc99m Sestamibi [id number] Duration 15.5min. Img Date 05/30/2018 Inj-Img [id number]. Stress Admin Site: IV - Right AntecubitalAdministrator: ABEBE Moses ARRT (Long)(N) STRESS DATA End Diast. Vol.114.0mlAv. Heart Rate75.0bpm LVEDV index BSA51.0mlCardiac Output2.5L/min End Syst. Vol.40.0mlCO Index BSA5.5L/min LVESV index BSA18.0mlMyocardial Ymec057.0g Eject. Zksxacfw08.0% Stress Scores Regional WT1.00Summed WT3.00 Regional WM0.00Summed WM0.00 LV Perfusion stress scintigraphic images did not show any significant perfusion defects. Wall Motion Normal left ventricle systolic function with ejection fraction calculated at 65%. LV Perf. Quant 17 Seg. SSS2.00 Stress Defect Extent (% LAD)0.00Rest Defect Extent (% LAD)Rev. Defect Extent (% LAD)0.00 Stress Defect Extent (% LCX) 0.00Rest Defect Extent (% LCX)Rev. Defect Extent (% LCX)0.00 Stress Defect Extent (% RCA)6.70Rest Defect Extent (% RCA)Rev. Defect Extent (% RCA)0.00 Stress Defect Extent (% CHACHO)1.30Rest Defect Extent (% CHACHO)Rev. Defect Extent (% CHACHO)0.00 Conclusion 1. Regadenoson cardioisotope stress test did not show any evidence of ischemia or infarct. 2. Normal left ventricular systolic function with ejection fraction calculated at 65%. 3. Low risk for cardiac events. Signed by : Neelam Patel, Electronically Approved : 05/30/2018 12:15:30
--- NOTE | 2018-05-30 12:43 | CARD ---
MR#: [id number] Date of Study: 05/30/2018 Ordering Physician: NEELAM PUCKETT, Referring Physician: NEELAM PUCKETT Tech: Karin Santos LUIS A APPROVED REPORT EXAM: Two-dimensional and M-mode echocardiogram with Doppler and color Doppler. Other Information Quality : AverageHR: 61bpm Rhythm : NSR INDICATION Chest Pain 2D DIMENSIONS RVDd3.0 (2.9-3.5cm)Left Atrium(2D)4.2 (1.6-4.0cm) IVSd1.2 (0.7-1.1cm)Aortic Root(2D)2.5 (2.0-3.7cm) LVDd4.9 (3.9-5.9cm)LVOT Diameter1.9 (1.8-2.4cm) PWd0.9 (0.7-1.1cm)IVSs2.1 (0.8-1.2cm) LVDs2.8 (2.5-4.0cm)FS (%) 43.2 % PWs1.8 (0.8-1.2cm)SV81.9 ml LVEF(%)74.3 (>50%) M-Mode DIMENSIONS Left Atrium(MM)4.20 (2.5-4.0cm)Aortic Root2.95 (2.2-3.7cm) Aortic Valve AoV Peak Danny.139.3cm/sAoV VTI27.8cm AO Peak GR.7.8mmHgLVOT Peak Danny.116.4cm/s LVOT VTI 20.85cmAO Mean GR.4mmHg JERRY (VMAX)1.62pl0CNW (VTI)2.16cm2 Mitral Valve MV E Qzfqcnri66.7cm/sMV DECEL REVO504iz MV A Eucnqwbm494.4cm/sMV BXY92ys E/A Ratio0.8MVA (PHT)3.39cm2 TDI E/Lateral E'9.9E/Medial E'9.7 Pulmonary Valve PV Peak Qgitfczk041.4cm/sPV Peak Grad.6mmHg LEFT VENTRICLE The left ventricle is normal size. Proximal septal thickening is noted. The left ventricular systolic function is normal. The Ejection Fraction is 65-70%. There is normal LV segmental wall motion. Trans mitral Doppler flow pattern is Grade I-abnormal relaxation pattern. RIGHT VENTRICLE The right ventricle is normal size. There is normal right ventricular wall thickness. The right ventr icular systolic function is normal. ATRIA The left atrium is mildly dilated. The right atrium size is normal. The atrial septum is aneurysmal. AORTIC VALVE The aortic valve is normal in structure and function. The aortic valve is trileaflet. Doppler and Col or Flow revealed no significant aortic regurgitation. There is no significant aortic valvular stenosi s. MITRAL VALVE The mitral valve is normal in structure and function. There is no evidence of mitral valve prolapse. There is no mitral valve stenosis. Doppler and Color-flow revealed trace mitral regurgitation. TRICUSPID VALVE The tricuspid valve is normal in structure and function. Doppler and Color Flow revealed no tricuspid valve regurgitation noted. There is no tricuspid valve prolapse or vegetation. There is no tricuspid valve stenosis. PULMONIC VALVE Pulmonic valve not well visualized. GREAT VESSELS The aortic root is normal in size. The ascending aorta is normal in size. The IVC is normal in size a nd collapses >50% with inspiration. PERICARDIAL EFFUSION There is no evidence of significant pericardial effusion. Critical Notification Critical Value: No <Conclusion> The left ventricular systolic function is normal. The Ejection Fraction is 65-70%. There is normal LV segmental wall motion. Transmitral Doppler flow pattern is Grade I-abnormal relaxation pattern. Doppler and Color-flow revealed trace mitral regurgitation. There is no evidence of significant pericardial effusion. Signed by : Neelam Puckett, Electronically Approved : 05/30/2018 12:41:38
== END | disposition home or self-care (01) ==
LOC: NM 07:11
PROVIDERS: ATTEND Internal Medicine Cardiovascular Disease
DX: R07.89 Other chest pain (principal); J45.909 Unspecified asthma, uncomplicated; Z88.2 Allergy status to sulfonamides; Z88.8 Allergy status to other drugs, medicaments and biological substances
CPT/HCPCS: 78452; 93017; 93306; 96374; A9500; J2785

== ENCOUNTER → 2018-07-22 | Outpatient (CLI) | payer OTHER ==
[~2018-07-22] MED LIST changes: -REGADENOSON 0.4 MG/5 ML DISP.SYRIN. IV ONE
--- NOTE | 2018-07-22 14:18 | RAD ---
DATE: 07/22/2018 EXAM: MAMMO DAREK DIAG BILAT HISTORY: Strong family history of breast cancer, positive BRCA test COMPARISON: 12/27/2017, 12/16/2016 This study was interpreted with the benefit of Computerized Aided Detection (CAD). Breast Density: SCATTERED The breast parenchyma shows scattered fibroglandular densities. Breast parenchyma level B. FINDINGS: 2-D and 3-D tomosynthesis imaging was performed in CC and MLO projections. There are unchanged benign-appearing lymph node type densities projected over the axillary tail regions bilaterally. No new or enlarging breast densities are seen. No spiculated mass or architectural distortion is evident. Minimal benign type calcification is present. No suspicious microcalcifications are seen. IMPRESSION: Stable mammograms without evidence of malignancy. BI-RADS CATEGORY: 2 BENIGN FINDING(S) RECOMMENDED FOLLOW-UP: 12M 12 MONTH FOLLOW-UP PQRS compliance statement: Patient information was entered into a reminder system with a target due date for the next mammogram. Mammography is a sensitive method for finding small breast cancers, but it does not detect them all and is not a substitute for careful clinical examination. A negative mammogram does not negate a clinically suspicious finding and should not result in delay in biopsying a clinically suspicious abnormality. "Our facility is accredited by the [employer] Mammography Program."
== END | disposition home or self-care (01) ==
LOC: MAMMO 13:11
PROVIDERS: ATTEND Family Medicine
DX: Z15.01 Genetic susceptibility to malignant neoplasm of breast (principal); Z80.3 Family history of malignant neoplasm of breast
CPT/HCPCS: 77066; G0279; 77062

== ENCOUNTER → 2019-10-24 | Outpatient (CLI) | payer BC, OTHER ==
[~2019-10-24] MED LIST changes: +OMEP40CA45 PO; -OMEP40CA5 PO; -WARF-78 PO; +WARF5TAB2 PO
--- NOTE | 2019-10-24 14:48 | RAD ---
MR#: [id number] Date of Study: 10/24/2019 Ordering Physician: NEELAM PATLE, Referring Physician: NEELAM PATEL, Tech: Verna Rolle RDMS, RASHIDA, RTR APPROVED REPORT Patient Location : OUT-PATIENT Indications Lower Extremity Edema : Bilateral Greater Saphenous Veins (GSV) Significant venous relux noted in the RIGHT GSV at the following levels : Superficial Femoral Junctio n, Proximal Thigh, Mid Thigh, Distal Thigh, Proximal Calf, Mid Calf, Distal Calf Findings Grayscale images of the bilateral saphenofemoral junctions did not reveal any evidence of thrombus. The right great saphenous vein measures approximately 6.7 mm and has a maximum reflux time of 1.5 sec onds. The left great saphenous vein measures 5.4 mm and does not have any significant reflux. Bilateral lesser saphenous veins did not show any evidence of reflux. Critical Notification Critical Value: No <Conclusion> 1. Positive for reflux in the right great saphenous vein. Signed by : Mendoza Cortés, Electronically Approved : 10/24/2019 14:47:29
--- NOTE | 2019-10-24 15:29 | CARD ---
MR#: [id number] Date of Study: 10/24/2019 Ordering Physician: NEELAM PUCKETT, Referring Physician: NEELAM PUCKETT, Tech: Verna Joyce APPROVED REPORT EXAM: Two-dimensional and M-mode echocardiogram with Doppler and color Doppler. Other Information Quality : AverageHR: 71bpm Technically limited study due to body habitus. INDICATION Edema RISK FACTORS Hypertension 2D DIMENSIONS Left Atrium(2D)2.8 (1.6-4.0cm)IVSd1.4 (0.7-1.1cm) Aortic Root(2D)2.9 (2.0-3.7cm)LVDd4.1 (3.9-5.9cm) LVOT Diameter2.0 (1.8-2.4cm)PWd1.1 (0.7-1.1cm) LVDs2.4 (2.5-4.0cm)FS (%) 40.7 % SV52.1 mlLVEF(%)71.9 (>50%) Aortic Valve AoV Peak Danny.156.5cm/sAoV VTI26.2cm AO Peak GR.9.8mmHgLVOT Peak Danny.144.7cm/s LVOT VTI 27.23cmAO Mean GR.5mmHg JERRY (VMAX)2.37ww8ZGK (VTI)3.15cm2 Mitral Valve MV E Pjymmlhq53.1cm/sMV DECEL [id number] MV A Yaezxrgp137.4cm/sMV E Mean Gr.2mmHg MV GNW74lnV/A Ratio0.7 MVA (PHT)3.21cm2 TDI E/Lateral E'10.5E/Medial E'12.6 Pulmonary Valve PV Peak Wontjumt08.0cm/sPV Peak Grad.4mmHg Tricuspid Valve TR P. Vgfseeaj516rw/sRAP TJGOWFLE7csZj TR Peak Gr.26mmHg Pulmonary Vein S1 Nadwqwzc67.8cm/sD2 Ssupsoxl31.8cm/s PVa [id number] LEFT VENTRICLE The left ventricle is normal size. There is mild to moderate concentric left ventricular hypertrophy. The left ventricular systolic function is normal. The Ejection Fraction is 55-60%. There is normal L V segmental wall motion. Transmitral Doppler flow pattern is Grade I-abnormal relaxation pattern. RIGHT VENTRICLE The right ventricle is normal size. There is normal right ventricular wall thickness. The right ventr icular systolic function is normal. ATRIA The left atrium size is normal. The right atrium size is normal. The atrial septum is aneurysmal. AORTIC VALVE The aortic valve is thickened but opens well. Doppler and Color Flow revealed trace to mild aortic re gurgitation. There is no significant aortic valvular stenosis. Calculated aortic valve area is 2.6 cm 2 with maximum pressure gradient of 12 mmHg and mean pressure gradient of 6 mmHg. MITRAL VALVE The mitral valve is normal in structure and function. There is no evidence of mitral valve prolapse. There is no mitral valve stenosis. Doppler and Color-flow revealed trace mitral regurgitation. TRICUSPID VALVE The tricuspid valve is normal in structure and function. Doppler and Color Flow revealed mild tricusp id regurgitation with an estimated PAP of 30 mmHg. There is no tricuspid valve stenosis. PULMONIC VALVE The pulmonic valve is not well visualized. Doppler and Color Flow revealed no pulmonic valvular regur gitation. GREAT VESSELS The aortic root is normal in size. The IVC is normal in size and collapses >50% with inspiration. PERICARDIAL EFFUSION There is no evidence of significant pericardial effusion. Critical Notification Critical Value: No <Conclusion> The left ventricular systolic function is normal. The Ejection Fraction is 55-60%. There is normal LV segmental wall motion. Transmitral Doppler flow pattern is Grade I-abnormal relaxation pattern. Trace to mild aortic regurgitation. Trace mitral regurgitation. Mild tricuspid regurgitation with an estimated PAP of 30 mmHg. There is no evidence of significant pericardial effusion. Signed by : Neelam Puckett, Electronically Approved : 10/24/2019 15:28:38
== END ==
LOC: US 13:23
PROVIDERS: ATTEND Internal Medicine Cardiovascular Disease
DX: I08.2 Rheumatic disorders of both aortic and tricuspid valves (principal); R60.0 Localized edema
CPT/HCPCS: 93306; 93970

== ENCOUNTER → 2020-09-26 | Outpatient (CLI) | payer BC ==
[~2020-09-26] MED LIST changes: +AMLO-186 PO; -AMLO5TAB10 PO; -LISI-338 PO; +LISI-517 PO
--- NOTE | 2020-09-26 12:04 | RAD ---
DATE: September 26, 2020 EXAM: MAMMO DAREK SCREENING BILATERAL HISTORY: Screening study. COMPARISON: 2016 through 2019 This study was interpreted with the benefit of Computerized Aided Detection (CAD). FINDINGS: Breast Density: SCATTERED The breast parenchyma shows scattered fibroglandular densities. Breast parenchyma level B.. There are no dominant suspicious masses, suspicious microcalcifications or evidence of architectural distortion. Nodularity of both breasts is stable. IMPRESSION: No mammographic indicators for malignancy. BI-RADS CATEGORY: 2 BENIGN FINDING RECOMMENDED FOLLOW-UP: 12M 12 MONTH FOLLOW-UP PQRS compliance statement: Patient information was entered into a reminder system with a target due date September 27, 2021 for the next mammogram. Mammography is a sensitive method for finding small breast cancers, but it does not detect them all and is not a substitute for careful clinical examination. A negative mammogram does not negate a clinically suspicious finding and should not result in delay in biopsying a clinically suspicious abnormality. "Our facility is accredited by the [employer] Mammography Program." The patient's breast density may affect the ability of mammography to detect breast cancer. There are 4 categories of breast density, A, B, C and D. Breast density A means that most of the breast tissue is replaced with adipose tissue and therefore is not dense. Breast density B means that the breast tissue is mildly dense and scattered. Breast density C means that the breast tissue is heterogeneously dense. Breast density D means that the breast tissue is very dense. Breast densities especially C and D may decrease the sensitivity of mammography to detect breast cancer. Therefore, the patient may benefit from 3-D breast mammography (3D breast tomography) as a part of their screening mammogram. Insurance may or may not pay for this additional imaging. The patient's breast density based on today's mammogram is category B.
== END ==
LOC: MAMMO 09:33
PROVIDERS: ATTEND Family Medicine
DX: Z12.31 Encounter for screening mammogram for malignant neoplasm of breast (principal); A00.1 Cholera due to Vibrio cholerae 01, biovar eltor
CPT/HCPCS: 77063; 77067

== ENCOUNTER → 2021-08-21 | Outpatient (CLI) | payer BC ==
[~2021-08-21] MED LIST changes: -LISI-517 PO; +LISI5TAB15 PO; -OMEP40CA45 PO; +OMEP40CA7 PO
--- NOTE | 2021-08-22 09:31 | KCIC ---
EXAMINATION: XR LUMBAR SPINE 2-3V CLINICAL HISTORY: Low back pain x6 days, no known injury. TECHNIQUE: XR LUMBAR SPINE 2-3V Number of Images/Views: 3 COMPARISON: None FINDINGS: Normal anatomic alignment. No evidence of acute fracture. Trjg-mh-sevkhdep degenerative disc disease at L3-4 with grade 1 anterolisthesis. Cgms-iq-wvpvkziz multilevel facet arthropathy, greatest at L3-4 . Degenerative changes in the left greater than right SI joints, incompletely evaluated. IMPRESSION: Tmhj-tl-mxulivca degenerative disc disease and grade 1 anterolisthesis at L3-4. Ziuq-jz-romqqknm lumbar facet arthropathy, greatest at L3-4. Electronically signed by: Aryan Ryder DO (08/22/2021 9:29 AM) [id number]
== END ==
LOC: KCIC 14:58
PROVIDERS: ATTEND Family Medicine
DX: M51.26 Other intervertebral disc displacement, lumbar region (principal); M43.16 Spondylolisthesis, lumbar region; M48.8X6 Other specified spondylopathies, lumbar region
CPT/HCPCS: 72100